=== PATIENT | male | born 1960 | race Caucasian/White ===

== ENCOUNTER → 2017-05-03 | Outpatient (CLI) | payer OTHER ==
[~2017-05-03] MED LIST: ASPI81CH PO; Amlodipine-Ben1 EACH PO; Azithromycin250 MG PO; BENAML20/5 PO; COLC.6 PO; COLCHICINE0.6 MG PO; COLCRYS0.6 MG; COLCRYS0.6 MG PO; Complete Multi1 EAC1 PO; DAILY MULTIPLE1 EACH; FLONASE ALLERG9.9 ML; Flonase 0.05% N16 GM; HYDR1TAB94 PO; LISHYD1012 PO; METR500 PO; NAPR500 PO; Naprosyn500 MG PO; Norco 5-325 Ta1 EACH PO; TAMS.4ER PO; Valium5 MG PO
== END ==
LOC: OLS 13:00
DX: R19.7 Diarrhea, unspecified (principal)
CPT/HCPCS: 87177; 87209

== ENCOUNTER → 2017-05-04 | Outpatient (CLI) | payer OTHER | END | disposition home or self-care (01) | LOC: OLS 16:20 | DX: K52.9 Noninfective gastroenteritis and colitis, unspecified (principal) | CPT/HCPCS: 84376; 87177; 87209; 87493 ==

== ENCOUNTER → 2017-05-05 | Outpatient (CLI) | payer OTHER | LOC: LAB 09:15 | DX: K52.9 Noninfective gastroenteritis and colitis, unspecified (principal) | CPT/HCPCS: 87015; 87045; 87046; 87205; 87329; 87899 ==

== ENCOUNTER 2017-06-21 04:36 | Inpatient (IN) | payer OTHER ==
[~2017-06-21] VITALS: Ht 167.6 cm; Wt 125.3 kg
[~2017-06-21 04:36] MED LIST changes: -Amlodipine-Ben1 EACH PO; +BENAML20/5; -COLCHICINE0.6 MG PO; -METR500 PO; -TAMS.4ER PO
[2017-06-21 05:16] LABS: BASOPHILS ABSOLUTE AUTO 0.04 K/mm3 (0.00-0.23); BASOPHILS PERCENT AUTO 1 % (0-2); EOSINOPHILS ABSOLUTE AUTO 0.28 K/mm3 (0.00-0.68); EOSINOPHILS PERCENT AUTO 4 % (0-6); Hematocrit 39.4 % (37.0-53.0); Hemoglobin 12.7 g/dL (13.5-17.5); IMMATURE GRAN ABSOLUTE AUTO 0.02 K/mm3 (0.00-0.10); IMMATURE GRAN PERCENT AUTO 0 % (0-1); LYMPHOCYTES ABSOLUTE AUTO 1.77 K/mm3 (0.84-5.20); LYMPHOCYTES PERCENT AUTO 25 % (21-46); MONOCYTES ABSOLUTE AUTO 0.64 K/mm3 (0.16-1.47); MONOCYTES PERCENT AUTO 9 % (4-13); Mean Corpuscular HGB 30.8 pg (26.0-34.0); Mean Corpuscular HGB Conc 32.2 g/dL (31.5-36.5); Mean Corpuscular Volume 96 fL (80-100); Mean Platelet Volume 9.7 fL (9.1-12.4); NEUTROPHILS ABSOLUTE AUTO 4.36 K/mm3 (1.96-9.15); NEUTROPHILS PERCENT AUTO 61 % (41-73); Platelet Count 144 K/mm3 (150-400); RDW Coefficient Variation 12.3 % (11.7-14.2); RDW Standard Deviation 42.8 fL (35.1-46.3); Red Blood Cell Count 4.12 M/mm3 (4.30-5.90); White Blood Cell Count 7.11 K/mm3 (4.00-11.30)
[2017-06-21 05:30] LABS: International Normalized Ratio 0.98; Prothrombin Time Results 10.2 Sec (9.7-11.5)
[2017-06-21 05:33] LABS: Alanine Aminotransfer (ALT/SGP 38 U/L (12-78); Albumin, Blood 3.3 g/dL (3.4-5.0); Albumin/Globulin Ratio 0.9 (0.8-1.8); Alk Phos 92 U/L (50-136); Anion Gap 6 mmol/L (6-16); Aspartate Aminotrans (AST/SGOT 27 U/L (12-37); Bilirubin, Total 0.4 mg/dL (0.1-1.0); Blood Urea Nitrogen 18 mg/dL (8-24); Bun/Creatinine Ratio 26.7 (12.0-20.0); CO2, Blood 27 mmol/L (21-32); Chloride, Blood 107 mmol/L (98-108); Creatinine, Blood 0.67 mg/dL (0.60-1.20); Globulin, Blood 3.8 g/dL (2.2-4.0); Glomerular Filtration Rate >60 (60-); Glucose, Blood 110 mg/dL (70-99); Potassium, Blood 4.4 mmol/L (3.5-5.5); Sodium, Blood 140 mmol/L (136-145); Total Protein, Blood 7.1 g/dL (6.4-8.2)
[2017-06-21 06:20] LABS: Campylobacter Sp Not Detected (NOT DETECT); Cryptosporidium Not Detected (NOT DETECT); Cyclospora Cayetanensis Not Detected (NOT DETECT); E. Coli O157 Not Detected (NOT DETECT); Entamoeba Histolytica Not Detected (NOT DETECT); Enteroaggregative E. coli-EAEC Not Detected (NOT DETECT); Enteropathogenic E. coli-EPEC Not Detected (NOT DETECT); Enterotoxigenic E. coli-ETEC Not Detected (NOT DETECT); Plesiomonas Shigelloides Not Detected (NOT DETECT); Salmonella Sp Not Detected (NOT DETECT); Shiga Toxin-prod E. coli-STEC Not Detected (NOT DETECT); Shigella/Enteroin E. coli-EIEC Not Detected (NOT DETECT); Vibrio Cholerae Not Detected (NOT DETECT); Vibrio Sp Not Detected (NOT DETECT); Yersinia Enterocolitica Not Detected (NOT DETECT)
[2017-06-21 06:21] LABS: Adenovirus F 40/41 Not Detected (NOT DETECT); Astrovirus Not Detected (NOT DETECT); Giardia Lamblia Not Detected (NOT DETECT); Norovirus GI/GII Not Detected (NOT DETECT); Rotavirus A Not Detected (NOT DETECT); Sapovirus Not Detected (NOT DETECT)
[2017-06-21 09:59] LABS: Hematocrit 38.2 % (37.0-53.0); Hemoglobin 12.3 g/dL (13.5-17.5)
[2017-06-21] MEDS ORDERED: TAMS.4ER PO (10:52)
[2017-06-21] MEDS ORDERED: COLCHICINE0.6 MG PO (10:54)
[2017-06-21 14:16] LABS: Hematocrit 35.7 % (37.0-53.0); Hemoglobin 11.5 g/dL (13.5-17.5)
[2017-06-21 18:10] LABS: Hematocrit 33.8 % (37.0-53.0); Hemoglobin 10.9 g/dL (13.5-17.5)
[2017-06-21 22:24] LABS: Hematocrit 32.8 % (37.0-53.0); Hemoglobin 10.5 g/dL (13.5-17.5)
[2017-06-22 05:24] LABS: BASOPHILS ABSOLUTE AUTO 0.05 K/mm3 (0.00-0.23); BASOPHILS PERCENT AUTO 1 % (0-2); EOSINOPHILS ABSOLUTE AUTO 0.19 K/mm3 (0.00-0.68); EOSINOPHILS PERCENT AUTO 3 % (0-6); Hematocrit 31.1 % (37.0-53.0); Hemoglobin 9.8 g/dL (13.5-17.5); IMMATURE GRAN ABSOLUTE AUTO 0.04 K/mm3 (0.00-0.10); IMMATURE GRAN PERCENT AUTO 1 % (0-1); LYMPHOCYTES ABSOLUTE AUTO 1.32 K/mm3 (0.84-5.20); LYMPHOCYTES PERCENT AUTO 21 % (21-46); MONOCYTES ABSOLUTE AUTO 0.62 K/mm3 (0.16-1.47); MONOCYTES PERCENT AUTO 10 % (4-13); Mean Corpuscular HGB 30.7 pg (26.0-34.0); Mean Corpuscular HGB Conc 31.5 g/dL (31.5-36.5); Mean Corpuscular Volume 98 fL (80-100); Mean Platelet Volume 10.1 fL (9.1-12.4); NEUTROPHILS ABSOLUTE AUTO 4.21 K/mm3 (1.96-9.15); NEUTROPHILS PERCENT AUTO 66 % (41-73); Platelet Count 138 K/mm3 (150-400); RDW Coefficient Variation 12.3 % (11.7-14.2); RDW Standard Deviation 44.1 fL (35.1-46.3); Red Blood Cell Count 3.19 M/mm3 (4.30-5.90); White Blood Cell Count 6.43 K/mm3 (4.00-11.30)
[2017-06-22 05:40] LABS: Anion Gap 7 mmol/L (6-16); Blood Urea Nitrogen 16 mg/dL (8-24); CO2, Blood 26 mmol/L (21-32); Chloride, Blood 108 mmol/L (98-108); Creatinine, Blood 0.76 mg/dL (0.60-1.20); Glomerular Filtration Rate >60 (60-); Glucose, Blood 107 mg/dL (70-99); Potassium, Blood 4.2 mmol/L (3.5-5.5); Sodium, Blood 141 mmol/L (136-145)
[2017-06-22] MEDS ORDERED: METR500 PO (20:00)
== END 2017-06-22 20:30 | disposition home or self-care (01) | DRG 371 ==
LOC: ER 04:36 → MEDS 08:38
PROVIDERS: Emergency Medicine; Family Medicine; Internal Medicine Gastroenterology
PROC: 0DB98ZX Excision of Duodenum, Via Natural or Artificial Opening Endoscopic, Diagnostic (ICD-10-PCS; principal; 2017-06-22 16:00)
PROC: 0D738ZZ Dilation of Lower Esophagus, Via Natural or Artificial Opening Endoscopic (ICD-10-PCS; 2017-06-22 16:00)
PROC: 0DBK8ZZ Excision of Ascending Colon, Via Natural or Artificial Opening Endoscopic (ICD-10-PCS; 2017-06-22 16:00)
DX: A04.72 Enterocolitis due to Clostridium difficile, not specified as recurrent (principal); K57.31 Diverticulosis of large intestine without perforation or abscess with bleeding; Z68.41 Body mass index [BMI] 40.0-44.9, adult; I10 Essential (primary) hypertension; E78.5 Hyperlipidemia, unspecified; G47.33 Obstructive sleep apnea (adult) (pediatric); N40.0 Benign prostatic hyperplasia without lower urinary tract symptoms; E66.9 Obesity, unspecified; M10.9 Gout, unspecified; K22.2 Esophageal obstruction; K64.8 Other hemorrhoids; K63.5 Polyp of colon
CPT/HCPCS: 36415; 74177; 80048; 80053; 82272; 85014; 85018; 85025; 85610; 85730; 86850; 86900; 86901; 87507; 88305; 88342; 93005; 93010; 96360; 96361; 99285; C9113; J1956; J1980; J2250; J7030; J7120; Q9967

== ENCOUNTER 2017-11-02 15:20 | Inpatient (IN) | payer OTHER ==
[~2017-11-02] VITALS: Ht 167.6 cm; Wt 130.5 kg
[~2017-11-02 15:20] MED LIST changes: +Amlodipine-Ben1 EACH PO; -BENAML20/5; +COLCHICINE0.6 MG PO; +METR500 PO; +TAMS.4ER PO
[2017-11-02 17:46] LABS: Alanine Aminotransfer (ALT/SGP 37 U/L (12-78); Albumin, Blood 3.5 g/dL (3.4-5.0); Albumin/Globulin Ratio 0.9 (0.8-1.8); Alk Phos 91 U/L (50-136); Anion Gap 8 mmol/L (6-16); Aspartate Aminotrans (AST/SGOT 31 U/L (12-37); Bilirubin, Total 0.4 mg/dL (0.1-1.0); Blood Urea Nitrogen 17 mg/dL (8-24); Bun/Creatinine Ratio 22.2 (12.0-20.0); CO2, Blood 24 mmol/L (21-32); Calcium, Blood 8.7 mg/dL (8.5-10.1); Chloride, Blood 106 mmol/L (98-108); Creatinine, Blood 0.77 mg/dL (0.60-1.20); Globulin, Blood 3.7 g/dL (2.2-4.0); Glomerular Filtration Rate >60 (60-); Glucose, Blood 116 mg/dL (70-99); Potassium, Blood 4.6 mmol/L (3.5-5.5); Sodium, Blood 138 mmol/L (136-145); Total Protein, Blood 7.2 g/dL (6.4-8.2)
[2017-11-02 18:55] LABS: BASOPHILS ABSOLUTE AUTO 0.06 K/mm3 (0.00-0.23); BASOPHILS PERCENT AUTO 1 % (0-2); EOSINOPHILS ABSOLUTE AUTO 0.18 K/mm3 (0.00-0.68); EOSINOPHILS PERCENT AUTO 3 % (0-6); Hematocrit 38.7 % (37.0-53.0); Hemoglobin 12.2 g/dL (13.5-17.5); IMMATURE GRAN ABSOLUTE AUTO 0.03 K/mm3 (0.00-0.10); IMMATURE GRAN PERCENT AUTO 1 % (0-1); LYMPHOCYTES ABSOLUTE AUTO 1.32 K/mm3 (0.84-5.20); LYMPHOCYTES PERCENT AUTO 20 % (21-46); MONOCYTES ABSOLUTE AUTO 0.53 K/mm3 (0.16-1.47); MONOCYTES PERCENT AUTO 8 % (4-13); Mean Corpuscular HGB 29.8 pg (26.0-34.0); Mean Corpuscular HGB Conc 31.5 g/dL (31.5-36.5); Mean Corpuscular Volume 95 fL (80-100); Mean Platelet Volume 10.3 fL (9.1-12.4); NEUTROPHILS ABSOLUTE AUTO 4.43 K/mm3 (1.96-9.15); NEUTROPHILS PERCENT AUTO 68 % (41-73); Platelet Count 127 K/mm3 (150-400); RDW Coefficient Variation 14.9 % (11.7-14.2); RDW Standard Deviation 52.2 fL (35.1-46.3); Red Blood Cell Count 4.09 M/mm3 (4.30-5.90); White Blood Cell Count 6.55 K/mm3 (4.00-11.30)
[2017-11-03 05:40] LABS: BASOPHILS ABSOLUTE AUTO 0.04 K/mm3 (0.00-0.23); BASOPHILS PERCENT AUTO 1 % (0-2); EOSINOPHILS ABSOLUTE AUTO 0.24 K/mm3 (0.00-0.68); EOSINOPHILS PERCENT AUTO 4 % (0-6); Hematocrit 38.8 % (37.0-53.0); Hemoglobin 11.8 g/dL (13.5-17.5); IMMATURE GRAN ABSOLUTE AUTO 0.02 K/mm3 (0.00-0.10); IMMATURE GRAN PERCENT AUTO 0 % (0-1); LYMPHOCYTES ABSOLUTE AUTO 1.14 K/mm3 (0.84-5.20); LYMPHOCYTES PERCENT AUTO 20 % (21-46); MONOCYTES ABSOLUTE AUTO 0.48 K/mm3 (0.16-1.47); MONOCYTES PERCENT AUTO 8 % (4-13); Mean Corpuscular HGB 29.2 pg (26.0-34.0); Mean Corpuscular HGB Conc 30.4 g/dL (31.5-36.5); Mean Corpuscular Volume 96 fL (80-100); Mean Platelet Volume 9.8 fL (9.1-12.4); NEUTROPHILS ABSOLUTE AUTO 3.82 K/mm3 (1.96-9.15); NEUTROPHILS PERCENT AUTO 67 % (41-73); Platelet Count 118 K/mm3 (150-400); RDW Coefficient Variation 14.8 % (11.7-14.2); Red Blood Cell Count 4.04 M/mm3 (4.30-5.90); White Blood Cell Count 5.74 K/mm3 (4.00-11.30)
[2017-11-03 14:20] LABS: Hematocrit 40.5 % (37.0-53.0); Hemoglobin 12.7 g/dL (13.5-17.5)
== END 2017-11-03 18:14 | disposition home or self-care (01) | DRG 378 ==
LOC: ER 15:20 → MEDS 19:52
PROVIDERS: Emergency Medicine; Family Medicine; Hospitalist
DX: K57.91 Diverticulosis of intestine, part unspecified, without perforation or abscess with bleeding (principal); Z68.42 Body mass index [BMI] 45.0-49.9, adult; I10 Essential (primary) hypertension; N40.0 Benign prostatic hyperplasia without lower urinary tract symptoms; E78.5 Hyperlipidemia, unspecified; D69.6 Thrombocytopenia, unspecified; E66.01 Morbid (severe) obesity due to excess calories; R73.9 Hyperglycemia, unspecified; K52.9 Noninfective gastroenteritis and colitis, unspecified; G47.33 Obstructive sleep apnea (adult) (pediatric); J30.9 Allergic rhinitis, unspecified; Z86.19 Personal history of other infectious and parasitic diseases
CPT/HCPCS: 36415; 80053; 85014; 85018; 85025; 86850; 86900; 86901; 87493

== ENCOUNTER 2019-02-28 07:06 | Emergency (ER) | payer SELFPAY ==
[~2019-02-28] VITALS: Ht 167.6 cm; Wt 127.0 kg
[~2019-02-28 07:06] MED LIST changes: +ALBU90OI6 INH; +Prednisone20 MG PO; +Zithromax250 MG PO
[2019-02-28] MEDS ORDERED: Indomethacin50 MG PO (08:50)
[2019-02-28] MEDS ORDERED: Norco 5-325 Ta1 EACH PO (08:51)
== END 2019-02-28 09:28 | disposition home or self-care (01) ==
LOC: ER 07:06
DX: M10.9 Gout, unspecified (principal); I10 Essential (primary) hypertension; Z79.899 Other long term (current) drug therapy
CPT/HCPCS: 99283

== ENCOUNTER 2019-08-12 01:55 | Emergency (ER) | payer OTHER ==
[~2019-08-12] VITALS: Ht 167.6 cm; Wt 131.5 kg
[~2019-08-12 01:55] MED LIST changes: +Indomethacin50 MG PO
[2019-08-12] MEDS ORDERED: Norco 5-325 Ta1 EACH PO (02:23)
[2019-08-12] MEDS ORDERED: IBUP800 PO (02:23)
== END 2019-08-12 02:27 | disposition home or self-care (01) ==
LOC: ER 01:55
DX: M70.32 Other bursitis of elbow, left elbow (principal); I10 Essential (primary) hypertension; E78.5 Hyperlipidemia, unspecified; R73.9 Hyperglycemia, unspecified; M10.9 Gout, unspecified; Z79.899 Other long term (current) drug therapy
CPT/HCPCS: 99283; A9270-GY

== ENCOUNTER 2021-01-22 21:00 | Observation (INO) | payer OTHER ==
[~2021-01-22] VITALS: Ht 177.8 cm; Wt 139.9 kg
[~2021-01-22 21:00] MED LIST changes: +IBUP800 PO
[2021-01-22] MEDS ORDERED: TAMSULOSIN HCL0.4 M1 (21:43)
[2021-01-22] MEDS ORDERED: FLUTICASONE-SA1 EAC9 (21:44)
[2021-01-22] MEDS ORDERED: DUTASTERIDE0.5 M3 PO (21:46)
[2021-01-22 21:47] LABS: BASOPHILS ABSOLUTE AUTO 0.06 K/mm3 (0.00-0.23); BASOPHILS PERCENT AUTO 1 % (0-2); EOSINOPHILS ABSOLUTE AUTO 0.18 K/mm3 (0.00-0.68); EOSINOPHILS PERCENT AUTO 2 % (0-6); Hematocrit 45.8 % (37.0-53.0); Hemoglobin 14.6 g/dL (13.5-17.5); IMMATURE GRAN ABSOLUTE AUTO 0.03 K/mm3 (0.00-0.10); IMMATURE GRAN PERCENT AUTO 0 % (0-1); LYMPHOCYTES ABSOLUTE AUTO 1.57 K/mm3 (0.84-5.20); LYMPHOCYTES PERCENT AUTO 18 % (21-46); MONOCYTES ABSOLUTE AUTO 0.78 K/mm3 (0.16-1.47); MONOCYTES PERCENT AUTO 9 % (4-13); Mean Corpuscular HGB 30.7 pg (26.0-34.0); Mean Corpuscular HGB Conc 31.9 g/dL (31.5-36.5); Mean Corpuscular Volume 96 fL (80-100); Mean Platelet Volume 9.8 fL (9.1-12.4); NEUTROPHILS ABSOLUTE AUTO 6.02 K/mm3 (1.96-9.15); NEUTROPHILS PERCENT AUTO 70 % (41-73); Platelet Count 171 K/mm3 (150-400); RDW Standard Deviation 46.3 fL (35.1-46.3); Red Blood Cell Count 4.76 M/mm3 (4.30-5.90); White Blood Cell Count 8.64 K/mm3 (4.00-11.30)
[2021-01-22] MEDS ORDERED: ATOR10 PO (21:47)
[2021-01-22] MEDS ORDERED: Nitroglycerin1 EAC3 TD (21:49)
[2021-01-22 22:05] LABS: Alanine Aminotransfer (ALT/SGP 42 U/L (12-78); Albumin, Blood 3.6 g/dL (3.4-5.0); Albumin/Globulin Ratio 0.9 (0.8-1.8); Alk Phos 103 U/L (50-136); Anion Gap 7 mmol/L (6-16); Aspartate Aminotrans (AST/SGOT 41 U/L (12-37); Bilirubin, Total 0.5 mg/dL (0.1-1.0); Blood Urea Nitrogen 14 mg/dL (8-24); Bun/Creatinine Ratio 17.9 (12.0-20.0); CO2, Blood 28 mmol/L (21-32); Calcium, Blood 9.5 mg/dL (8.5-10.1); Chloride, Blood 103 mmol/L (98-108); Creatinine, Blood 0.78 mg/dL (0.60-1.20); Globulin, Blood 4.1 g/dL (2.2-4.0); Glomerular Filtration Rate >60 (60-); Glucose, Blood 108 mg/dL (70-99); Potassium, Blood 4.1 mmol/L (3.5-5.5); Sodium, Blood 138 mmol/L (136-145); Total Protein, Blood 7.7 g/dL (6.4-8.2); Troponin I 0.035 ng/mL (0.000-0.040)
[2021-01-23 04:57] LABS: Alanine Aminotransfer (ALT/SGP 37 U/L (12-78); Albumin, Blood 3.2 g/dL (3.4-5.0); Albumin/Globulin Ratio 0.9 (0.8-1.8); Alk Phos 88 U/L (50-136); Anion Gap 8 mmol/L (6-16); Aspartate Aminotrans (AST/SGOT 31 U/L (12-37); Bilirubin, Total 0.5 mg/dL (0.1-1.0); Blood Urea Nitrogen 15 mg/dL (8-24); Bun/Creatinine Ratio 19.4 (12.0-20.0); CO2, Blood 27 mmol/L (21-32); Calcium, Blood 8.9 mg/dL (8.5-10.1); Chloride, Blood 105 mmol/L (98-108); Creatinine, Blood 0.77 mg/dL (0.60-1.20); Globulin, Blood 3.7 g/dL (2.2-4.0); Glomerular Filtration Rate >60 (60-); Glucose, Blood 110 mg/dL (70-99); Potassium, Blood 3.8 mmol/L (3.5-5.5); Sodium, Blood 140 mmol/L (136-145); Total Protein, Blood 6.9 g/dL (6.4-8.2)
[2021-01-23 05:25] LABS: Anti-Xa UFH, PHA Monitoring <0.10 IU/mL; International Normalized Ratio 1.04; Prothrombin Time Results 10.9 Sec (9.7-11.5)
--- NOTE | 2021-01-23 05:37 | NUR ---
Arrival to unit from ED denies SOB and CP Able to stand and pivot from stretcher to bed refusing to use urinal for urine output, states he will "hold it"
--- NOTE | 2021-01-23 07:36 | NUR ---
cardiology consult called to Dr. Husain, updated on pt condition at this time.
--- NOTE | 2021-01-23 07:37 | NUR ---
ASSUMED CARE OF PT THIS AM PT. ALERT AND ORIENTED THIS AM. ABLE TO REPOSITION SELF IN BED FOR COMFORT. PT. DENIES CHEST PAIN/PRESSURE THIS AM. PT. REPORTS PAIN USUALLY STARTS WITH EXCERTION. PT. SEES CARIDIOLOGY ( ANA BANERJEE NP) OUT PATIENT. PT. CURRENTLY ON RA, HEPEARIN GTT INFUSING AT THIS TIME. PT WAS HYPERTENSIVE THIS AM, HYDRALAZINE 10MG GIVEN THIS AM. BED IN LOW POSITION, CALL LIGHT IN REACH.
[2021-01-23 08:24] LABS: BASOPHILS ABSOLUTE AUTO 0.06 K/mm3 (0.00-0.23); BASOPHILS PERCENT AUTO 1 % (0-2); EOSINOPHILS ABSOLUTE AUTO 0.28 K/mm3 (0.00-0.68); EOSINOPHILS PERCENT AUTO 4 % (0-6); Hematocrit 43.2 % (37.0-53.0); Hemoglobin 13.3 g/dL (13.5-17.5); IMMATURE GRAN ABSOLUTE AUTO 0.02 K/mm3 (0.00-0.10); IMMATURE GRAN PERCENT AUTO 0 % (0-1); LYMPHOCYTES ABSOLUTE AUTO 1.64 K/mm3 (0.84-5.20); LYMPHOCYTES PERCENT AUTO 21 % (21-46); MONOCYTES ABSOLUTE AUTO 0.76 K/mm3 (0.16-1.47); MONOCYTES PERCENT AUTO 10 % (4-13); Mean Corpuscular HGB 30.2 pg (26.0-34.0); Mean Corpuscular HGB Conc 30.8 g/dL (31.5-36.5); Mean Corpuscular Volume 98 fL (80-100); Mean Platelet Volume 9.9 fL (9.1-12.4); NEUTROPHILS ABSOLUTE AUTO 4.97 K/mm3 (1.96-9.15); NEUTROPHILS PERCENT AUTO 64 % (41-73); Platelet Count 146 K/mm3 (150-400); RDW Coefficient Variation 13.2 % (11.7-14.2); RDW Standard Deviation 47.6 fL (35.1-46.3); Red Blood Cell Count 4.41 M/mm3 (4.30-5.90); White Blood Cell Count 7.73 K/mm3 (4.00-11.30)
[2021-01-23 08:49] LABS: Source, Urine Clean Catch
[2021-01-23 09:01] LABS: Troponin I 0.018 ng/mL (0.000-0.040)
[2021-01-23 09:05] LABS: Appearance, Urine Clear (Clear); Bilirubin, Urine Neg (Neg); Blood, Urine Neg (Neg); Color, Urine Yellow (P-Yellow); Glucose Qualitative, Urine Neg (Neg); Ketones, Urine Neg (Neg); Leukocyte Esterase, Urine Neg (Neg); Nitrite, Urine Neg (Neg); Protein, Urine Neg (Neg); Specific Gravity, Urine 1.025 (1.003-1.022); Urobilinogen, Urine NORM (Normal)
--- NOTE | 2021-01-23 13:44 | NUR ---
DR. CRAFT IN TO CONSENT PT FOR HEART CATH. PT. FAMILY CALLED PER PT REQUEST TO UPDATE ON PLAN OF CARE.
[2021-01-23] MEDS ORDERED: LORA10ER PO (13:52)
[2021-01-23] MEDS ORDERED: METO25 PO (13:52)
--- NOTE | 2021-01-23 13:53 | NUR ---
PT MED LIST UPDATED PER PT PRESCRIPTIONS.
--- NOTE | 2021-01-23 14:12 | NUR ---
PT. TO I&C TECH AT THIS TIME. TELE NOTIFIED. PT REMAINS HYPERTENSIVE I&C TECH STAFF NOTIFIED OF THIS.
[2021-01-23 14:50] LABS: Influenza A, PCR NEGATIVE (NEGATIVE); Influenza B, PCR NEGATIVE (NEGATIVE); Resp Syncytial Virus, PCR NEGATIVE (NEGATIVE); SARS-Cov-2 (COVID-19) PCR, MMC NEGATIVE (NEGATIVE)
--- NOTE | 2021-01-23 14:58 | NUR ---
REPORT TO LYN BELTRAN
--- NOTE | 2021-01-23 17:53 | NUR ---
PATIENT ARRIVED FROM CVL VIA BED AROUND 1600. WITH AND CVL STAFF. HE HAD A RIGHT WRIST APPROACH WITH TR BAND IN PLACE, BALLOON FILLED WITH 18 ML OF AIR. SITE LOOKS GOOD, GOOD CAP REFILL ON RIGHT HAND FINGERS. SPO2 MONITOR ON THE RIGHT HAND. LUNGS ARE CLEAR. ON 2 LITERS NC DOWN TO RA. SPO2 97%. BP 120-210'S/50-164. DR CRAFT ADDED ANOTHER BP MEDICATION. 12 LEAD EKG DONE POST CVL, IT LOOKS GOOD. PATIENT IS DROWSY BUT ARROUSABLE. HE ATE DINNER, 100% WITH HELP FROM . HE WAS ABLE TO VOID WHILE IN BED WITH A URINAL WITH HELP FROM STAFF. HIS TR BAND IS BEING LET DOWN 1 ML EVERY 15 MINUTES. SITE IS BEING ASSESSED EACH TIME WITH DECREASE IN BALLOON. OVERAL, HE IS LOOKING GOOD. WILL LEAVE AT 1800.
--- NOTE | 2021-01-23 19:01 | NUR ---
1ML OF AIR RELEASED FROM TR BAND WITH DAYSHIFT RN DURING BEDSIDE REPORT - PER REPORT 9ML OF AIR REMAINING
[2021-01-23 20:57] LABS: Troponin I 0.07 ng/mL (0.000-0.040)
--- NOTE | 2021-01-23 23:00 | NUR ---
Dr. Loyd called for CPAP order. Patient with sleep apnea with desaturation down to 76%. Patient states he is supposed to wear CPAP at home for GIANNI, but feels like he is "suffocating" when he attempted to wear one at home and is now noncomplaint. Patient educated on severity of apnea observed by keno writer. Patient apnic for 5-10 seconds at a time, and then would gasp for air 2 or 3 breaths and go back to apnic with desaturations down to 76% even on 6LNC. Patient states he will try to wear a CPAP tonight.
--- NOTE | 2021-01-23 23:00 | NUR ---
1930 - 2ML REMOVED - 7ML REMAINING IN TR BAND 1945 - 2ML REMOVED - 5ML REMAINING IN TR BAND 2000 - 1ML REMOVED - 4ML REMAINING IN TR BAND 2045 - 2ML REMOVED - 2ML REMIANING IN TR BAND 2100 - 2ML REMOVED - 0ML REMAINING IN TR BAND 2200 - TR BAND REMOVED, OCCLUSIVE DRESSING WITH CHG/TEGADERM APPLIED 2300 - 1HR S/P TR BAND REMOVAL - DRESSING REMAINS C/D/I AND SITE REMAINS NONTENDER, SOFT, NO BRUISING/HEMATOMA, NO BLEEDING, CLEAN SITE.
--- NOTE | 2021-01-24 05:49 | NUR ---
End of shift summary: Morning EKG taken: NSR with T wave abnormality, "consider lateral ischemia" No morning labs ordered. PRN hydralazine given x1 approx 1-2 hours after new HTN meds orders given. Patient tolerating TR band off without complication. Able to ambulate in room with SBA to toilet. BM x2 overnight. Loose-liquid. Urination WNL. Tolerated CPAP - improved saturations, HR, and blood pressure with CPAP on.
[2021-01-24 07:49] LABS: Hematocrit 40.3 % (37.0-53.0); Hemoglobin 12.6 g/dL (13.5-17.5); Mean Corpuscular HGB Conc 31.3 g/dL (31.5-36.5); Mean Corpuscular Volume 99 fL (80-100); Mean Platelet Volume 9.9 fL (9.1-12.4); Platelet Count 141 K/mm3 (150-400); RDW Coefficient Variation 13.1 % (11.7-14.2); RDW Standard Deviation 47.5 fL (35.1-46.3); Red Blood Cell Count 4.07 M/mm3 (4.30-5.90)
[2021-01-24 08:16] LABS: Alanine Aminotransfer (ALT/SGP 36 U/L (12-78); Albumin, Blood 2.8 g/dL (3.4-5.0); Albumin/Globulin Ratio 0.8 (0.8-1.8); Alk Phos 84 U/L (50-136); Anion Gap 7 mmol/L (6-16); Aspartate Aminotrans (AST/SGOT 46 U/L (12-37); Bilirubin, Total 0.7 mg/dL (0.1-1.0); Blood Urea Nitrogen 22 mg/dL (8-24); Bun/Creatinine Ratio 25.3 (12.0-20.0); CHOL/HDL RATIO 2.7; CO2, Blood 26 mmol/L (21-32); Calcium, Blood 8.7 mg/dL (8.5-10.1); Chloride, Blood 106 mmol/L (98-108); Cholesterol 122 mg/dL (50-200); Creatinine, Blood 0.87 mg/dL (0.60-1.20); Globulin, Blood 3.6 g/dL (2.2-4.0); Glomerular Filtration Rate >60 (60-); Glucose, Blood 114 mg/dL (70-99); HDL Cholesterol 46 mg/dL (>39); LDL/HDL RATIO 0.5; Low Density Lipoprotein Chol 24 mg/dL (0-110); Magnesium, Blood 1.9 mg/dL (1.6-2.4); Sodium, Blood 139 mmol/L (136-145); Total Protein, Blood 6.4 g/dL (6.4-8.2); Triglycerides 261 mg/dL (30-160); Very Low Density Lipoprot Chol 52 mg/dL (6-32)
--- NOTE | 2021-01-24 08:52 | NUR ---
ASSUMED CARE BEDSIDE REPORT FROM JOHNSON BELTRAN AT 0700. PT A&OX 3. ANSWERS QUESTIONS APPROPRIATELY. FOLLOWS COMMANDS. DENIES CHEST PAIN OR PRESSURE. EAGER FOR D/C. CPAP REMOVED AND PLACED ON 2.5L VIA NC. LUNGS DIM IN BASES. NONPRODUCTIVE COUGH. SR ON MONITOR. BP STABLE. RIGHT RADIAL SITE WNL, DRESSING C/D/I. ARM BOARD IN PLACE. PT ABLE TO REPOSITION SELF IN BED, MAKE NEEDS KNOWN. WILL CONTINUE TO MONITOR.
[2021-01-24] MEDS ORDERED: NITR.4SL SL (10:47)
[2021-01-24] MEDS ORDERED: DUTA.5 PO (10:48)
[2021-01-24] MEDS ORDERED: CLOP75 PO (10:48)
[2021-01-24] MEDS ORDERED: ASPI81CH PO (10:48)
[2021-01-24] MEDS ORDERED: HYDCHL25 PO (10:49)
--- NOTE | 2021-01-24 11:30 | NUR ---
DR CRAFT AND DR BLACKMAN ROUNDED. D/C ORDERS OBTAINED. REVIEWED INSTRUCTIONS c PT. VERBALIZED UNDERSTANDING. MEDS FAXED TO [facility]. IV REMOVED. ALL BELONGINGS HOME c PT. OTD NAD.
== END 2021-01-24 11:59 | disposition home or self-care (01) ==
LOC: ER 21:00 → ERHOLD 01-23 01:34 → ICUE 01-23 01:34 → EDBEDREQ 01-23 02:56 → EDBEDREQSVC 01-23 02:56 → ICUE 01-23 05:41
PROVIDERS: Internal Medicine; Internal Medicine Cardiovascular Disease; Physician Assistant; ADMIT Internal Medicine
DX: I21.4 Non-ST elevation (NSTEMI) myocardial infarction (principal); I10 Essential (primary) hypertension; E78.5 Hyperlipidemia, unspecified; E11.9 Type 2 diabetes mellitus without complications; G47.33 Obstructive sleep apnea (adult) (pediatric); E66.9 Obesity, unspecified; Z68.41 Body mass index [BMI] 40.0-44.9, adult; I35.0 Nonrheumatic aortic (valve) stenosis; Z20.822 Contact with and (suspected) exposure to COVID-19
CPT/HCPCS: 0241U; 36415; 71045; 76937; 80053; 80061; 81003; 82550; 83690; 83735; 83880; 84443; 84484; 85025; 85027; 85347; 85520; 85610; 93005; 93010; 93306; 93454; 94640; 94660; 94664; 96374; 96376; 99152; 99153; 99285-25; A9270; C1769; C1874; C1887; C1894; C9600; G0378; J0360; J1644; J2250; J3010; J7030; J7050; Q9967

== ENCOUNTER 2021-06-08 09:25 | Day surgery (SDC) | payer OTHER ==
[~2021-06-08 09:25] MED LIST changes: +ATOR10 PO; +CLOP75 PO; +DUTA.5 PO; +DUTASTERIDE0.5 M3 PO; +FAMO20 PO; +FLUTICASONE-SA1 EAC9; +HYDCHL25 PO; +LORA10ER PO; +METO25 PO; +NITR.4SL SL; +Nitroglycerin1 EAC3 TD; +TAMSULOSIN HCL0.4 M1
--- NOTE | 2021-06-08 10:00 | NUR ---
PATIENT HERE FOR CT ANGIOGRAM. PRE-OP IN DAY SURGERY. A&O x4. TOOK AM MEDS THIS AM WITH SIP OF WATER. DENIES NO CHEST PAIN AT THIS TIME.
--- NOTE | 2021-06-08 10:12 | NUR ---
METOPROLOL 5MG IVP GIVEN PER ORDERS TO CONTROL HR <62 AND BP <120. CONTINUE TO MONITOR AND TX PER ORDERS.
--- NOTE | 2021-06-08 10:23 | NUR ---
SECOND DOSE METOPROLOL 5MG IVP GIVEN FOR HR/BP CONTROL.
--- NOTE | 2021-06-08 10:38 | NUR ---
TRANSFER PATIENT VIA GURNEY TO RADIOLOGY FOR CT ANGIOGRAM.
--- NOTE | 2021-06-08 11:23 | NUR ---
Patient up to Ambulate independently. Gait steady. Discharge instructions reviewed with patient. Patient verbalizes understanding. Copy given to patient to take home. Discharge to home via ambulation.
== END 2021-06-08 23:08 | disposition home or self-care (01) ==
LOC: CT 09:25 → ORD 09:30 → ORSCMMR 09:30 → CT 10:00
DX: Z01.810 Encounter for preprocedural cardiovascular examination (principal); I25.10 Atherosclerotic heart disease of native coronary artery without angina pectoris; E78.5 Hyperlipidemia, unspecified; I10 Essential (primary) hypertension; E66.01 Morbid (severe) obesity due to excess calories; Z68.43 Body mass index [BMI] 50.0-59.9, adult; Z95.5 Presence of coronary angioplasty implant and graft
CPT/HCPCS: 75574; Q9967

== ENCOUNTER 2021-09-21 07:55 | Emergency (ER) | payer OTHER ==
[~2021-09-21] VITALS: Ht 167.6 cm; Wt 136.1 kg
[2021-09-21] MEDS ORDERED: ONDA4ODT MM (08:37)
[2021-09-21] MEDS ORDERED: CYCL10 PO (08:37)
[2021-09-21] MEDS ORDERED: PRED20 PO (08:37)
[2021-09-21] MEDS ORDERED: HYDR1TAB94 PO (08:37)
[2021-09-21] MEDS ORDERED: DOCU100 PO (08:37)
== END 2021-09-21 09:30 | disposition home or self-care (01) ==
LOC: ER 07:55
DX: M25.551 Pain in right hip (principal); M87.9 Osteonecrosis, unspecified; I10 Essential (primary) hypertension; E66.01 Morbid (severe) obesity due to excess calories; Z68.42 Body mass index [BMI] 45.0-49.9, adult; Z86.16 Personal history of COVID-19; Z79.899 Other long term (current) drug therapy; Z79.82 Long term (current) use of aspirin; Z79.02 Long term (current) use of antithrombotics/antiplatelets; Z95.5 Presence of coronary angioplasty implant and graft
CPT/HCPCS: A9270; J1885

== ENCOUNTER 2022-07-13 05:57 | Day surgery (SDC) | payer OTHER ==
[~2022-07-13] VITALS: Ht 167.6 cm; Wt 108.8 kg
[2022-07-13] VITALS (22 sets, daily range): BP systolic 110–141; BP diastolic 45–63
[~2022-07-13 05:57] MED LIST changes: +Apple Cider Vi300 MG PO; +BREZTRI AEROS10.7 GM INH; +CYCL10 PO; +DOCU100 PO; +INDO50S PO; +NITRO-DUR1 EAC1 TOP; +OLME20 PO; +ONDA4ODT MM; +PRED20 PO; +ZINC SULFATE50 MG PO
[2022-07-13] MEDS ORDERED: Aspirin325 MG PO (07:10)
--- NOTE | 2022-07-13 07:30 | NUR ---
History, Chart, Medications and Allergies reviewed before start of procedure.PRE OP TEACHING DONE. PT REPORTS HAVING A FLARE UP OF GOUT IN BOTH ANKLES. WITH PAIN OF4/10, NO SWELLING OR RDDNESS NOTED. INFORMED DR NATH OF THIS. AT BEDSIDE.
[2022-07-13] MEDS ORDERED: LORA10ER PO (15:39)
[2022-07-13] MEDS ORDERED: AMLO5 PO (15:39)
--- NOTE | 2022-07-13 16:50 | NUR ---
SHIFT SUMMARY NEW ADMIT TO UNIT POD [address] NATH. ALERT, ORIENTED, COOPERATIVE. SPINAL WORE OFF WELL, STILL REPORTS MILD NUMBNESS TO RIGHT KNEE. SBA TO AMBULATE IN HALLS WITH PHYSICAL THERAPY AND FWW AND GB. UP TO RECLINER. TOLERATING REGULAR DIET AND LIQUIDS. NO VOID AT THIS TIME, WILL MONITOR WITH BS. IV FLUID RUNNING. RIGHT KNEE WITH AQUACELS AND JARED WRAP C/D/I. POLAR PACK IN PLACE. SPOUSE PRESENT DURING AFTERNOON. PHARMACY CALLED THIS RN WITH CONCERNS ABOUT PATIENT'S HOME BP MEDS. CALL OUT TO JONA CURRY AND DR NATH TO OBTAIN ORDER FOR HOSP CONSULT TO MANAGE HOME BP MEDS WITH PHARMACY. WILL REPORT TO OPERATING ROOM SPECIALIST RN.
--- NOTE | 2022-07-13 19:38 | NUR ---
HOME BP MEDS PHARMACY CALLED THIS RN TO INFORM THAT PATIENT'S HOME BP MEDS ARE UNSAFE AND HAVE BEEN ORDERED BY TWO OR MORE PROVIDERS IN THE COMMUNITY. OBTAINED ORDER FOR HOSP CONSULT FROM DR NATH. SPOKE WITH DR CHRISTIAN. HE STATED EITHER HE OR DR GARCIA WILL COME SEE PATIENT AND REVIEW HOME MEDS AND MAKE A RECOMMENDATION.
--- NOTE | 2022-07-14 04:14 | NUR ---
SHIFT SUMMARY POD1 RIGHT TKA, DRESSING REMAINS C/D/I. SENSATION AND CIRCULATION REMAIN INTACT IN RLE. VSS, CONTINUOUS PULSE OX ALARMED WHEN PT'S HR DROPPED INTO THE 40'S WHILE THE PT WAS SLEEPING. THIS HR DID NOT SUSTAIN AND WOULD RETURN TO THE HIGH 50'S QUICKLY. PT REMAINS ASYMPTOMATIC. PT HAS AMBULATED TO THE BATHROOM MULTIPLE TIMES TO VOID W/O DIFFICULTY. PT MEDICATED FOR PAIN WITH SCHEDULED AND ONCE WITH OXY. CRYO REMAINS IN PLACE. PT REPORTS MINIMAL TO NO PAIN. PT TOLLERATING PO INTAKE W/O N/V. NO ACUTE EVENTS T/O THE NIGHT. PLAN FOR PT TO D/C HOME TODAY. THE PATIENT IS CURRENTLY RESTING, IN NO DISTRESS, CALL LIGHT IN REACH
[2022-07-14 04:17] VITALS: BP 119/63
[2022-07-14 07:02] LABS: BASOPHILS ABSOLUTE AUTO 0.06 K/mm3 (0.00-0.23); BASOPHILS PERCENT AUTO 1 % (0-2); EOSINOPHILS ABSOLUTE AUTO 0.47 K/mm3 (0.00-0.68); EOSINOPHILS PERCENT AUTO 4 % (0-6); Hematocrit 28.4 % (37.0-53.0); Hemoglobin 9.1 g/dL (13.5-17.5); IMMATURE GRAN ABSOLUTE AUTO 0.03 K/mm3 (0.00-0.10); IMMATURE GRAN PERCENT AUTO 0 % (0-1); LYMPHOCYTES ABSOLUTE AUTO 1.48 K/mm3 (0.84-5.20); LYMPHOCYTES PERCENT AUTO 14 % (21-46); MONOCYTES ABSOLUTE AUTO 0.89 K/mm3 (0.16-1.47); MONOCYTES PERCENT AUTO 8 % (4-13); Mean Corpuscular Volume 90 fL (80-100); Mean Platelet Volume 10.6 fL (9.1-12.4); NEUTROPHILS ABSOLUTE AUTO 7.82 K/mm3 (1.96-9.15); NEUTROPHILS PERCENT AUTO 73 % (41-73); Platelet Count 167 K/mm3 (150-400); RDW Coefficient Variation 13.4 % (11.7-14.2); Red Blood Cell Count 3.14 M/mm3 (4.30-5.90); White Blood Cell Count 10.75 K/mm3 (4.00-11.30)
[2022-07-14 07:14] VITALS: BP 105/61
[2022-07-14 07:19] LABS: Bun/Creatinine Ratio 28.3 (12.0-20.0); Calcium, Blood 8.7 mg/dL (8.5-10.1); Creatinine, Blood 0.78 mg/dL (0.60-1.20); Potassium, Blood 4.2 mmol/L (3.5-5.5)
[2022-07-14] MEDS ORDERED: Percocet 5-3251 EACH PO (09:31)
--- NOTE | 2022-07-14 10:05 | NUR ---
DISCHARGE NOTE: PATIENT AND PATIENTS WERE EDUCATED ON DISCHARGE INSTRUCTIONS. BOTH VERBALIZED UNDERSTANDING OF INSTRUCTIONS AND HAVE NO FURTHER QUESTIONS AT THIS TIME. HARD PERSCRIPTION WAS GIVEN TO . IV WAS TAKEN OUT AND WNL. PAIN IS MANAGED WITH ORAL PAIN MEDICATIONS. PATIENTS RIGHT KNEE HAS AN AQUACEL AND JARED WRAP THAT ARE C/D/I. DENIES NUMBNESS OR TINGLING. PATIENT IS TOLERATING PO INTAKE AND IS VOIDING. HE IS A SBA WITH FWW AND GAIT BELT. HE IS DRESSED AND HAS PERSONAL ITEMS IN THE ROOM GATHERED. HE WILL BE WHEELCHAIRED OUT TO THE CAR ONCE HIS RIDE ARRIVES.
--- NOTE | 2022-07-14 10:38 | NUR ---
PATIENT IS BEING WHEELCHAIRED OUT TO HIS RIDE TO BE TAKEN HOME.
== END 2022-07-14 10:39 | disposition home or self-care (01) ==
LOC: ORSCMMR 05:57 → SURS 05:57 → ORSCMMR 07:30 → ORD 08:15 → ORSCMMR 08:15 → ORD 10:00 → ORSCMMR 10:00 → SURS 12:29 → ORSCMMR 12:29 → SURS 07-14 10:39
PROVIDERS: Orthopaedic Surgery
PROC: 0SRC0JA Replacement of Right Knee Joint with Synthetic Substitute, Uncemented, Open Approach (ICD-10-PCS; principal; 2022-07-13 07:30)
DX: M17.11 Unilateral primary osteoarthritis, right knee (principal); I10 Essential (primary) hypertension; I25.2 Old myocardial infarction; G47.33 Obstructive sleep apnea (adult) (pediatric); I25.10 Atherosclerotic heart disease of native coronary artery without angina pectoris; Z79.899 Other long term (current) drug therapy; Z79.82 Long term (current) use of aspirin; E66.9 Obesity, unspecified; Z68.39 Body mass index [BMI] 39.0-39.9, adult; Z79.02 Long term (current) use of antithrombotics/antiplatelets
CPT/HCPCS: 36415; 73560-RT; 80048; 85025; 94660; 94762; 97110; 97116; 97162; A9270; C1713; C1776; J0171; J0690; J0735; J1885; J2250; J2370; J2405; J2704; J2765; J2795; J3010; J7120

== ENCOUNTER 2022-07-24 19:32 | Emergency (ER) | payer OTHER ==
[~2022-07-24] VITALS: Ht 167.6 cm; Wt 110.7 kg
[~2022-07-24 19:32] MED LIST changes: +AMLO5 PO; +Aspirin325 MG PO; +Percocet 5-3251 EACH PO
[2022-07-24 19:36] VITALS: BP 140/61
[2022-07-24] MEDS ORDERED: INDO50 PO (20:24)
[2022-07-24] MEDS ORDERED: OLMESARTAN MEDO40 MG PO (20:26)
[2022-07-24] MEDS ORDERED: Phentermine HCl30 MG (20:26)
== END 2022-07-24 21:55 | disposition home or self-care (01) ==
LOC: ER 19:32
DX: S80.01XA Contusion of right knee, initial encounter (principal); Z48.01 Encounter for change or removal of surgical wound dressing; I10 Essential (primary) hypertension; E78.00 Pure hypercholesterolemia, unspecified; Z79.02 Long term (current) use of antithrombotics/antiplatelets; Z79.899 Other long term (current) drug therapy; X58.XXXA Exposure to other specified factors, initial encounter
CPT/HCPCS: 99282

== ENCOUNTER 2022-10-16 22:03 | Emergency (ER) | payer OTHER ==
[~2022-10-16] VITALS: Ht 167.6 cm; Wt 107.5 kg
[~2022-10-16 22:03] MED LIST changes: +INDO50 PO; +OLMESARTAN MEDO40 MG PO; +Phentermine HCl30 MG
[2022-10-16 22:07] VITALS: BP 151/79
[2022-10-16] MEDS ORDERED: CEPH500 PO (23:51)
== END 2022-10-17 | disposition home or self-care (01) ==
LOC: ER 22:03
DX: T81.49XA Infection following a procedure, other surgical site, initial encounter (principal); L03.115 Cellulitis of right lower limb; F41.0 Panic disorder [episodic paroxysmal anxiety]; Z98.890 Other specified postprocedural states; Z96.651 Presence of right artificial knee joint; Z79.899 Other long term (current) drug therapy; I10 Essential (primary) hypertension; E78.00 Pure hypercholesterolemia, unspecified; M10.9 Gout, unspecified; I25.2 Old myocardial infarction
CPT/HCPCS: 99283; A9270

== ENCOUNTER 2023-01-11 09:16 | Day surgery (SDC) | payer OTHER ==
[2023-01-11] VITALS (15 sets, daily range): BP systolic 121–172; BP diastolic 69–91
[~2023-01-11] VITALS: Ht 165 cm; Wt 112.8 kg
[~2023-01-11 09:16] MED LIST changes: +ACET500; +ATORVASTATIN CA80 M1 PO; +CEPH500 PO; +Children's Clari5 MG PO; +GABA300 PO; +IBUP800; +NITROGLYCERINE TOP; +TRAM50
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
[2023-01-12 03:47] VITALS: BP 126/67
[2023-01-12 05:30] LABS: BASOPHILS ABSOLUTE AUTO 0.07 K/mm3 (0.00-0.23); BASOPHILS PERCENT AUTO 1 % (0-2); EOSINOPHILS ABSOLUTE AUTO 0.21 K/mm3 (0.00-0.68); EOSINOPHILS PERCENT AUTO 2 % (0-6); Hematocrit 27.2 % (37.0-53.0); Hemoglobin 8.3 g/dL (13.5-17.5); IMMATURE GRAN ABSOLUTE AUTO 0.03 K/mm3 (0.00-0.10); IMMATURE GRAN PERCENT AUTO 0 % (0-1); LYMPHOCYTES ABSOLUTE AUTO 0.99 K/mm3 (0.84-5.20); LYMPHOCYTES PERCENT AUTO 9 % (21-46); MONOCYTES ABSOLUTE AUTO 1.18 K/mm3 (0.16-1.47); MONOCYTES PERCENT AUTO 11 % (4-13); Mean Corpuscular HGB 25.9 pg (26.0-34.0); Mean Corpuscular HGB Conc 30.5 g/dL (31.5-36.5); Mean Corpuscular Volume 85 fL (80-100); Mean Platelet Volume 9.9 fL (9.1-12.4); NEUTROPHILS ABSOLUTE AUTO 8.23 K/mm3 (1.96-9.15); NEUTROPHILS PERCENT AUTO 77 % (41-73); Platelet Count 178 K/mm3 (150-400); RDW Coefficient Variation 16.7 % (11.7-14.2); RDW Standard Deviation 51.9 fL (35.1-46.3); Red Blood Cell Count 3.21 M/mm3 (4.30-5.90); White Blood Cell Count 10.71 K/mm3 (4.00-11.30)
[2023-01-12 05:52] LABS: Bun/Creatinine Ratio 24.9 (12.0-20.0); Calcium, Blood 8.1 mg/dL (8.5-10.1); Creatinine, Blood 0.76 mg/dL (0.60-1.20)
--- NOTE | 2023-01-12 06:40 | NUR ---
SHIFT SUMMARY PT POD 0 RIGHT TOTAL HIP, PT HAS RESTED OFF AND ON T/O THE NIGHT. PAIN HAS BEEN WELL CONTROLLED WITH MEDS PER EMAR. DRESSING IS INTACT TO RIGHT HIP. PT DENIES N/T IN EXT. HE HAS BEEN UP AMBULATING, AND HAS VOIDED. TOLERATING PO INTAKE. PT DENIES N/V. RESP E/U ON RA, SKIN WARM AND DRY. VITALS ARE STABLE. PT REPORTS INDIGESTION TYPE PAIN IN CHEST THIS AM CLOSE TO 0500, THAT RESOLVED WITH BELCHING AND AMBULATION. PT STATES HE GETS THIS PAIN ALL OF THE TIME. PIPELAYER MADE AWARE. PLAN IS FOR PT/OT AND DISCHARGE TODAY. BED IN LOWEST POSITION, CALL LIGHT WITHIN REACH.
[2023-01-12 07:37] VITALS: BP 138/69
[2023-01-12] MEDS ORDERED: Percocet 5-3251 EACH PO (09:13)
[2023-01-12] MEDS ORDERED: ASPI81CH PO (09:13)
--- NOTE | 2023-01-12 10:00 | NUR ---
DISCHARGE PT A&OX4, VSS/RA, MICHAEL PO, VOIDING, AMB SBA FWW/GB, PAIN MANAGED, IV DC'D. DC INS PROVIDED TO PT AND SPOUSE; REPORTED UNDERSTANDING THOSE INSTRUCTIONS. LEFT FLOOR VIA WC WITH PSYCHOLOGIST EDUCATIONAL TO GO HOME WITH SPOUSE AND SALES REPRESENTATIVE, WITH ALL PERSONAL POSSESSIONS INCLUDING DC PACKET.
== END 2023-01-12 10:07 | disposition home or self-care (01) ==
LOC: ORSCMMR 09:16 → ORD 11:00 → ORSCMMR 11:00 → SURS 15:18 → ORSCMMR 01-12 10:07 → SURS 01-12 10:07
PROVIDERS: Orthopaedic Surgery
PROC: 0SR90JZ Replacement of Right Hip Joint with Synthetic Substitute, Open Approach (ICD-10-PCS; principal; 2023-01-11 11:00)
DX: M16.11 Unilateral primary osteoarthritis, right hip (principal); M87.9 Osteonecrosis, unspecified; I10 Essential (primary) hypertension; G47.33 Obstructive sleep apnea (adult) (pediatric); E66.01 Morbid (severe) obesity due to excess calories; Z68.41 Body mass index [BMI] 40.0-44.9, adult; I25.2 Old myocardial infarction; I25.10 Atherosclerotic heart disease of native coronary artery without angina pectoris; Z79.899 Other long term (current) drug therapy
CPT/HCPCS: 27130; 0054T; 36415; 72170; 80048; 85025; 97110; 97116; 97162; 97530; A9270; C1776; J0171; J0690; J0735; J1885; J2250; J2371; J2704; J2795; J3010; J7120

== ENCOUNTER → 2023-10-20 | Outpatient (CLI) | payer OTHER ==
[2023-10-20 10:40] LABS: BASOPHILS ABSOLUTE AUTO 0.06 K/mm3 (0.00-0.23); BASOPHILS PERCENT AUTO 1 % (0-2); EOSINOPHILS ABSOLUTE AUTO 0.16 K/mm3 (0.00-0.68); EOSINOPHILS PERCENT AUTO 2 % (0-6); Hematocrit 36.7 % (37.0-53.0); Hemoglobin 11.6 g/dL (13.5-17.5); IMMATURE GRAN ABSOLUTE AUTO 0.02 K/mm3 (0.00-0.10); IMMATURE GRAN PERCENT AUTO 0 % (0-1); LYMPHOCYTES PERCENT AUTO 18 % (21-46); MONOCYTES ABSOLUTE AUTO 0.62 K/mm3 (0.16-1.47); MONOCYTES PERCENT AUTO 9 % (4-13); Mean Corpuscular HGB 28.4 pg (26.0-34.0); Mean Corpuscular HGB Conc 31.6 g/dL (31.5-36.5); Mean Corpuscular Volume 90 fL (80-100); NEUTROPHILS ABSOLUTE AUTO 5.01 K/mm3 (1.96-9.15); NEUTROPHILS PERCENT AUTO 70 % (41-73); Platelet Count 172 K/mm3 (150-400); RDW Coefficient Variation 14.8 % (11.7-14.2); RDW Standard Deviation 48.8 fL (35.1-46.3); RETICULOCYTE ABSOLUTE 0.0871 M/mm3 (0.0200-0.1100); RETICULOCYTE COUNT PERCENT 2.13 % (0.50-2.50); Red Blood Cell Count 4.09 M/mm3 (4.30-5.90); White Blood Cell Count 7.17 K/mm3 (4.00-11.30)
== END | disposition home or self-care (01) ==
LOC: LAB SHORT 10:17 → LAB 10:17
PROVIDERS: Family Medicine
DX: D51.0 Vitamin B12 deficiency anemia due to intrinsic factor deficiency (principal); M25.461 Effusion, right knee
CPT/HCPCS: 36415; 82607; 82746; 83540; 85025; 85045

== ENCOUNTER 2024-11-08 12:18 | Emergency (ER) | payer OTHER ==
[~2024-11-08] VITALS: Ht 167.6 cm; Wt 145.2 kg
[2024-11-08 12:30] VITALS: BP 195/77
[2024-11-08 12:53] LABS: BASOPHILS ABSOLUTE AUTO 0.06 K/mm3 (0.00-0.23); BASOPHILS PERCENT AUTO 1 % (0-2); EOSINOPHILS ABSOLUTE AUTO 0.11 K/mm3 (0.00-0.68); EOSINOPHILS PERCENT AUTO 1 % (0-6); Hematocrit 40.2 % (37.0-53.0); Hemoglobin 12.8 g/dL (13.5-17.5); IMMATURE GRAN ABSOLUTE AUTO 0.03 K/mm3 (0.00-0.10); IMMATURE GRAN PERCENT AUTO 0 % (0-1); LYMPHOCYTES ABSOLUTE AUTO 1.68 K/mm3 (0.84-5.20); LYMPHOCYTES PERCENT AUTO 17 % (21-46); MONOCYTES ABSOLUTE AUTO 0.86 K/mm3 (0.16-1.47); MONOCYTES PERCENT AUTO 9 % (4-13); Mean Corpuscular HGB Conc 31.8 g/dL (31.5-36.5); Mean Corpuscular Volume 95 fL (80-100); NEUTROPHILS ABSOLUTE AUTO 7.12 K/mm3 (1.96-9.15); NEUTROPHILS PERCENT AUTO 72 % (41-73); NRBC ABSOLUTE 0.00 K/mm3 (0.00-0.02); NRBC Auto 0.0 /100 WBC (0.0-0.2); Platelet Count 143 K/mm3 (150-400); RDW Coefficient Variation 14.2 % (11.7-14.2); RDW Standard Deviation 49.0 fL (35.1-46.3)
[2024-11-08 13:06] LABS: Alanine Aminotransfer (ALT/SGP 52.0 U/L (12-78); Albumin, Blood 3.3 g/dL (3.4-5.0); Albumin/Globulin Ratio 0.7 (0.8-1.8); Anion Gap 12.0 mmol/L (3-11); Aspartate Aminotrans (AST/SGOT 137.0 U/L (12-37); Bilirubin, Total 0.6 mg/dL (0.1-1.0); Blood Urea Nitrogen 13.0 mg/dL (8-24); CO2, Blood 24.0 mmol/L (21-32); Calcium, Blood 8.4 mg/dL (8.5-10.1); Chloride, Blood 106.0 mmol/L (98-108); Creatinine, Blood 0.75 mg/dL (0.60-1.20); Globulin, Blood 4.8 g/dL (2.2-4.0); Glucose, Blood 107.0 mg/dL (70-99); Potassium, Blood 4.2 mmol/L (3.5-5.5); Sodium, Blood 138.0 mmol/L (136-145); Total Protein, Blood 8.1 g/dL (6.4-8.2)
[2024-11-09] MEDS ORDERED: VALS80 PO (01:59)
[2024-11-09] MEDS ORDERED: OMEP20ER PO (09:03)
[2024-11-09] MEDS ORDERED: INDO50 PO (09:04)
== END 2024-11-08 16:15 | disposition home or self-care (01) ==
LOC: ER 12:18
PROVIDERS: Student in an Organized Health Care Education/Training Program
DX: I10 Essential (primary) hypertension (principal); R09.82 Postnasal drip
CPT/HCPCS: 71046; 80053; 85025; 93005; 93010; 99284-25

== ENCOUNTER 2024-11-08 16:58 | Inpatient (IN) | payer OTHER ==
[~2024-11-08] VITALS: Ht 167.6 cm; Wt 146.0 kg
[2024-11-08] MEDS ORDERED: Dexamethasone Sod Phos 10 MG/ML 1ML VIAL IV ONE (18:00)
[2024-11-08 18:18] LABS: BASOPHILS ABSOLUTE AUTO 0.06 K/mm3 (0.00-0.23); BASOPHILS PERCENT AUTO 1 % (0-2); EOSINOPHILS ABSOLUTE AUTO 0.05 K/mm3 (0.00-0.68); EOSINOPHILS PERCENT AUTO 1 % (0-6); Hematocrit 37.9 % (37.0-53.0); Hemoglobin 12.0 g/dL (13.5-17.5); IMMATURE GRAN ABSOLUTE AUTO 0.04 K/mm3 (0.00-0.10); IMMATURE GRAN PERCENT AUTO 0 % (0-1); LYMPHOCYTES ABSOLUTE AUTO 0.91 K/mm3 (0.84-5.20); LYMPHOCYTES PERCENT AUTO 10 % (21-46); MONOCYTES ABSOLUTE AUTO 0.69 K/mm3 (0.16-1.47); MONOCYTES PERCENT AUTO 8 % (4-13); Mean Corpuscular HGB Conc 31.7 g/dL (31.5-36.5); Mean Corpuscular Volume 93 fL (80-100); NEUTROPHILS ABSOLUTE AUTO 7.18 K/mm3 (1.96-9.15); NEUTROPHILS PERCENT AUTO 80 % (41-73); NRBC ABSOLUTE 0.00 K/mm3 (0.00-0.02); NRBC Auto 0.0 /100 WBC (0.0-0.2); Platelet Count 125 K/mm3 (150-400); RDW Coefficient Variation 14.2 % (11.7-14.2); RDW Standard Deviation 48.1 fL (35.1-46.3)
[2024-11-08 19:09] LABS: Alanine Aminotransfer (ALT/SGP 46.0 U/L (12-78); Albumin, Blood 3.3 g/dL (3.4-5.0); Albumin/Globulin Ratio 0.7 (0.8-1.8); Anion Gap 13.0 mmol/L (3-11); Aspartate Aminotrans (AST/SGOT 100.0 U/L (12-37); Bilirubin, Total 1.0 mg/dL (0.1-1.0); Blood Urea Nitrogen 15.0 mg/dL (8-24); CO2, Blood 26.0 mmol/L (21-32); Calcium, Blood 8.2 mg/dL (8.5-10.1); Chloride, Blood 105.0 mmol/L (98-108); Creatinine, Blood 0.8 mg/dL (0.60-1.20); Globulin, Blood 4.5 g/dL (2.2-4.0); Glucose, Blood 134.0 mg/dL (70-99); Potassium, Blood 3.5 mmol/L (3.5-5.5); Sodium, Blood 140.0 mmol/L (136-145); Total Protein, Blood 7.8 g/dL (6.4-8.2)
[2024-11-08] MEDS ORDERED: Ampicillin Sod/Sulbactam Sod 3 GM in NS 100 ML IV ONE ×2 (21:20→23:30)
[2024-11-09] VITALS (18 sets, daily range): BP systolic 163–202; BP diastolic 78–110
[2024-11-09] MEDS ORDERED: FLU VACC TS2025-26(6MOS UP)/PF 45 MCG/0.5 ML SYRINGE IM SCH (00:15)
[2024-11-09] MEDS ORDERED: Ampicillin Sod/Sulbactam Sod 3 GM in NS 100 ML IV SCH ×2 (00:22→06:00)
[2024-11-09 01:36] LABS: BASOPHILS ABSOLUTE AUTO 0.04 K/mm3 (0.00-0.23); BASOPHILS PERCENT AUTO 1 % (0-2); EOSINOPHILS ABSOLUTE AUTO 0.00 K/mm3 (0.00-0.68); EOSINOPHILS PERCENT AUTO 0 % (0-6); Hematocrit 38.7 % (37.0-53.0); Hemoglobin 12.4 g/dL (13.5-17.5); IMMATURE GRAN ABSOLUTE AUTO 0.03 K/mm3 (0.00-0.10); IMMATURE GRAN PERCENT AUTO 0 % (0-1); LYMPHOCYTES ABSOLUTE AUTO 0.58 K/mm3 (0.84-5.20); LYMPHOCYTES PERCENT AUTO 8 % (21-46); MONOCYTES ABSOLUTE AUTO 0.09 K/mm3 (0.16-1.47); MONOCYTES PERCENT AUTO 1 % (4-13); Mean Corpuscular HGB Conc 32.0 g/dL (31.5-36.5); Mean Corpuscular Volume 94 fL (80-100); NEUTROPHILS ABSOLUTE AUTO 6.71 K/mm3 (1.96-9.15); NEUTROPHILS PERCENT AUTO 90 % (41-73); NRBC ABSOLUTE 0.00 K/mm3 (0.00-0.02); NRBC Auto 0.0 /100 WBC (0.0-0.2); Platelet Count 136 K/mm3 (150-400); RDW Coefficient Variation 14.2 % (11.7-14.2); RDW Standard Deviation 49.2 fL (35.1-46.3)
[2024-11-09] MEDS ORDERED: VALS80 PO (01:59)
[2024-11-09 02:02] LABS: Alanine Aminotransfer (ALT/SGP 43.0 U/L (12-78); Albumin, Blood 3.3 g/dL (3.4-5.0); Albumin/Globulin Ratio 0.7 (0.8-1.8); Anion Gap 11.0 mmol/L (3-11); Aspartate Aminotrans (AST/SGOT 69.0 U/L (12-37); Bilirubin, Total 1.0 mg/dL (0.1-1.0); Blood Urea Nitrogen 14.0 mg/dL (8-24); CO2, Blood 25.0 mmol/L (21-32); Calcium, Blood 8.4 mg/dL (8.5-10.1); Chloride, Blood 104.0 mmol/L (98-108); Creatinine, Blood 0.67 mg/dL (0.60-1.20); Globulin, Blood 4.8 g/dL (2.2-4.0); Glucose, Blood 178.0 mg/dL (70-99); Potassium, Blood 4.0 mmol/L (3.5-5.5); Sodium, Blood 136.0 mmol/L (136-145); Total Protein, Blood 8.1 g/dL (6.4-8.2)
--- NOTE | 2024-11-09 02:31 | NUR ---
MD NOTIFICATION CALLED DR PEREZ FOR PT BP 183/110. TO PUT SOME MEDICATION ORDER IN
[2024-11-09] MEDS ORDERED: HydrALAZINE HCl 20 MG / ML 1ML Vial IV PRN (03:35)
--- NOTE | 2024-11-09 05:52 | NUR ---
MD NOTIFICATION MD PEREZ PAGED FOR BP UNCHANGED W PRN APRESOLINE ADMINISTRATION. MD TO LOOK INTO THE MEDS AND MAY ORDER SOMETHING ELSE. PT ASYMTOMATIC AND SLEEPING. WAITING FOR ORDERS
[2024-11-09] MEDS ORDERED: Pantoprazole Sodium 40 MG Injection IV SCH (06:00)
--- NOTE | 2024-11-09 06:06 | NUR ---
PT ADMITTED FROM ER AT 0103. PT ABLE TO TRANSFER OFF THE STRETCHER W ONE PERSON ASSIST. PT ON 2 LITERS NC AND MAINTAINED SATS OVERNIGHT. PT DID NOT WANT RN TO TITRATE O2 PT RECQUIRED FOR COMFORT. PT STILL SLEEPING IN HIGH FOWLERS. IV ABX SCHEDULED FOR ASP PNU. PT STILL C/O OF NASAL DRIP AND REFUSED SUCTION HE SAYS THERE IS NOTHING HE IS COUGHING UP. PT TRIED TO HAVE BM BUT JUST PASSED GAS. PT REFUSING URINAL AND WANTS TO SIT ON TOILET TO VOID URINE. PAGED FOR PT ELEVATED BP AND PRN APRESOLINE GIVEN. REPAGED THAT THIS WAS NOT EFFECTIVE IN LOWERING BP. MD MAHMOODMITJj TO EVAL CHART AND MAY ORDER SOMETHING ELSE. PT DENIES DOUBLE VISION, HEADACHE OR SYMPTOMS OF HIGH BP.
[2024-11-09] MEDS ORDERED: Enoxaparin 40 MG/0.4 ML SYR SC SCH (09:00)
[2024-11-09] MEDS ORDERED: Lactobacil 2-S.Thermo-Bifido 1 1 Cap PO SCH (09:00)
[2024-11-09] MEDS ORDERED: Fluticasone 0.05% Nasal Spray SCH (09:00)
[2024-11-09] MEDS ORDERED: OMEP20ER PO (09:03)
[2024-11-09] MEDS ORDERED: INDO50 PO (09:04)
--- NOTE | 2024-11-09 12:05 | NUR ---
SHIFT NOTE: PATIENT IS ALERT AND ORIENTED X 4 ABLE TO MAKE NEEDS KNOWN, DENIES CHEST PAIN PRESSURE OR SOB AT REST. ON ASSUMPTION AT 2L CURRENLTY ON RA SPO2 >92%. PATIENT IS TREMULOUS AND ENDORSES LAST DRINK ON TUESDAY, PINT AND A 24 OUNCE BEER DAILY, DENIES ETOH SYMPTOMS, HOWEVER, CIWA SCORE OF 3-4 FOR THIS RN HOSPITALIST INFORMED. SPEECH THERAPY HAS SEEN PLAN; FOR BARIUM SWALLOW, BUT OK FOR REGULAR FOOD, MED PRECAUTION OF MED WHOLE WITH PUREE. PATIENT TOLERATED LARGER PILL THIS WAY. HYPERTENSIVE FOR THIS RN THIS AM IMPROVED AND NOW SLOWLY INCREASING IN BP. NEW BP MEDS STARTED THIS AM. ONLY ACUTE CONCERN IS BLOOD PRESSURE AT THIS TIME. PLAN OF CARE CONTINUES. ABLE TO HAVE A LOOSE BM TODAY, DENIED BOWEL MEDS FROM THIS RN.
[2024-11-09] MEDS ORDERED: Labetalol HCL 5 MG/ML 4ML Injection (Single Dose) IV PRN ×2 (12:20→16:05)
--- NOTE | 2024-11-09 15:55 | NUR ---
EOS: PATIENT WITH NO ACUTE CHANGES FROM SHIFT NOTE. TITO RECOMMENDED ENT FOLLOW UP, BARIUM WNL, NO ACUTE CHANGES. CIWA PREFORMED Q4 HIGHEST SCORE OF A 5 FOR TREMOR AND SWEAT. DENIED SOB. ON RA SPO2 >92%. INTERMITTENT, BLOOD PRESSURE STILL ELEVATED. COUGH STILL PRESENT, SPEECH RECOMMENDED ENT TO EVALUATE. PATIENT GIVEN PRN LABETOLOL WITH MINIMAL AFFECT. PLAN OF CARE CONTINUES
--- NOTE | 2024-11-09 16:21 | NUR ---
INCREASED HR: SPOKE WITH CLAIRE DE LUNA TO GIVE COZAAR NOW. AND HE PLACED NEW RANGES ON LABATOLOL. CONTINUE TO MONITOR.
[2024-11-10 03:31] VITALS: BP 167/76
--- NOTE | 2024-11-10 06:12 | NUR ---
NO ACUTE EVENTS OVERNIGHT. PT REQUESTED MEDICATION FOR ANXIETY. STARTER CUP POWDER MIXER PROVIDER NOTIFIED. MED GIVEN ORDERED. PT SLEPT WITH CPAP ON INTERMITTENTLY. PT ABLE TO AMBULATE TO TOILET WITH STANDBY ASSISTANCE. BEDLOCKED IN LOWEST POSITION. CALL LIGHT WITHIN REACH. VSS.
[2024-11-10 07:05] LABS: Hematocrit 37.7 % (37.0-53.0); Hemoglobin 11.6 g/dL (13.5-17.5); Mean Corpuscular HGB Conc 30.8 g/dL (31.5-36.5); Mean Corpuscular Volume 97 fL (80-100); NRBC ABSOLUTE 0.00 K/mm3 (0.00-0.02); NRBC Auto 0.0 /100 WBC (0.0-0.2); Platelet Count 132 K/mm3 (150-400); RDW Coefficient Variation 14.6 % (11.7-14.2); RDW Standard Deviation 51.9 fL (35.1-46.3)
[2024-11-10 07:21] LABS: Albumin, Blood 2.9 g/dL (3.4-5.0); Anion Gap 9 mmol/L (3-11); Blood Urea Nitrogen 15 mg/dL (8-24); CO2, Blood 27 mmol/L (21-32); Calcium, Blood 8.4 mg/dL (8.5-10.1); Chloride, Blood 106 mmol/L (98-108); Creatinine, Blood 0.72 mg/dL (0.60-1.20); Glucose, Blood 125 mg/dL (70-99); Magnesium, Blood 1.7 mg/dL (1.6-2.4); Phosphorus, Blood 2.7 mg/dL (2.5-4.9); Potassium, Blood 3.4 mmol/L (3.5-5.5); Sodium, Blood 139 mmol/L (136-145)
[2024-11-10 08:46] VITALS: BP 135/63
[2024-11-10 11:23] VITALS: BP 136/64
[2024-11-10 16:22] VITALS: BP 139/74
--- NOTE | 2024-11-10 17:06 | NUR ---
SHIFT SUMMARY NO ACUTE CHANGES THIS SHIFT. PT A&OX4, ANXIOUS OCCASIONALLY. SP02>90% ON RA, DESATS WHILE SLEEPING. SLEEP OXIMETRY ORDERED FOR TONIGHT. PT HOPES TO QUALIFY FOR NC. REFUSED CPAP THIS SHIFT. C/O OF POST NASAL DRIP. NON PRODUCTIVE COUGH. TELEMETRY SHOWS NSR, HR 70'S. DENIES PAIN. UP TO BATHROOM SBA TO VOID AND HAVE BM THIS SHIFT. UP TO SHOWER THIS AM. DOWN TO IMAGING FOR CHEST CT, SEE RESULTS. PT UP IN RECLINER FOR AFTERNOON. CURRENTLY IN BED WATCHING FOOTBALL. IN ROOM MOST OF DAY. CALL LIGHT IN REACH.
[2024-11-10 19:38] VITALS: BP 150/77
[2024-11-10 23:09] VITALS: BP 134/72
[2024-11-11 05:29] VITALS: BP 154/83
--- NOTE | 2024-11-11 06:14 | NUR ---
NO ACUTE EVENTS OVERNIGHT. PT'S SLEEP STUDY PERFORMED BY RT. PT CALLED APPROPRIATELY TO GO TO BATHROOM. VSS. BED LOCKED IN LOWEST POSITION. CALL LIGHT WITHIN REACH.
[2024-11-11 06:29] LABS: Hematocrit 35.9 % (37.0-53.0); Hemoglobin 11.0 g/dL (13.5-17.5); Mean Corpuscular HGB Conc 30.6 g/dL (31.5-36.5); Mean Corpuscular Volume 97 fL (80-100); NRBC ABSOLUTE 0.00 K/mm3 (0.00-0.02); NRBC Auto 0.0 /100 WBC (0.0-0.2); Platelet Count 122 K/mm3 (150-400); RDW Coefficient Variation 14.5 % (11.7-14.2); RDW Standard Deviation 50.6 fL (35.1-46.3)
[2024-11-11 06:46] LABS: Albumin, Blood 2.8 g/dL (3.4-5.0); Anion Gap 6 mmol/L (3-11); Blood Urea Nitrogen 17 mg/dL (8-24); CO2, Blood 29 mmol/L (21-32); Calcium, Blood 8.2 mg/dL (8.5-10.1); Chloride, Blood 107 mmol/L (98-108); Creatinine, Blood 0.71 mg/dL (0.60-1.20); Glucose, Blood 99 mg/dL (70-99); Phosphorus, Blood 3.3 mg/dL (2.5-4.9); Potassium, Blood 3.4 mmol/L (3.5-5.5); Sodium, Blood 139 mmol/L (136-145)
[2024-11-11 07:01] VITALS: BP 140/79
[2024-11-11] MEDS ORDERED: HYDCHL25 PO (11:12)
[2024-11-11] MEDS ORDERED: AMOCLA875 PO (11:15)
[2024-11-11 11:35] VITALS: BP 158/78
--- NOTE | 2024-11-11 14:22 | NUR ---
DISCHARGE NOTE PT A&OX4, VSS. IV'S REMOVED. TELEMETRY REMOVED. DISCHARGE PAPERWORK REVIEWED W/ PT AND . MEDICATIONS FAXED TO [facility] PER PT REQUEST. PT'S STATED RECEIVED NOTIFICATION TEXT FROM [facility]. MEDICATION CHANGES REVIEWED W/ PT AND . VERBALIZED UNDERSTANDING. COURTNEY OCONNOR [facility] IN ROOM TO TOUCH BASE W/ PT FOR HOME NOC 02. PLANS TO MEET PT AND PT'S HOUSE. PT WHEELED TO PRIVATE VEHICLE WITH ALL PERSONAL BELONGINGS.
== END 2024-11-11 14:35 | disposition home or self-care (01) | DRG 177 ==
LOC: ER 16:58 → PCU 22:14
PROVIDERS: Emergency Medicine; Internal Medicine; Student in an Organized Health Care Education/Training Program; ADMIT Internal Medicine
DX: J69.0 Pneumonitis due to inhalation of food and vomit (principal); J96.01 Acute respiratory failure with hypoxia; J18.9 Pneumonia, unspecified organism; I10 Essential (primary) hypertension; E78.00 Pure hypercholesterolemia, unspecified; M10.9 Gout, unspecified; D69.6 Thrombocytopenia, unspecified; I25.10 Atherosclerotic heart disease of native coronary artery without angina pectoris; K21.9 Gastro-esophageal reflux disease without esophagitis; I35.0 Nonrheumatic aortic (valve) stenosis; F10.10 Alcohol abuse, uncomplicated; G47.33 Obstructive sleep apnea (adult) (pediatric); J30.9 Allergic rhinitis, unspecified; Z99.89 Dependence on other enabling machines and devices; I25.2 Old myocardial infarction; Z98.890 Other specified postprocedural states; Z87.19 Personal history of other diseases of the digestive system; Z79.82 Long term (current) use of aspirin; Z79.891 Long term (current) use of opiate analgesic; Z79.899 Other long term (current) drug therapy; Z95.5 Presence of coronary angioplasty implant and graft
CPT/HCPCS: 36415; 70491; 71045; 71250; 74230; 80053; 80069; 83735; 83880; 84145; 84484; 85025; 85027; 92610; 92611; 93005; 93010; 94640; 94660; 94664; 94762; 96374; 99285; A9270; J0295; J0360; J1100; J1650; J2470; J7120; Q9967

== ENCOUNTER 2024-12-10 20:01 | Inpatient (IN) | payer OTHER ==
[~2024-12-10] VITALS: Ht 165.1 cm; Wt 141.0 kg
[~2024-12-10 20:01] MED LIST changes: +AMOCLA875 PO; +OMEP20ER PO; +VALS80 PO
[2024-12-10 20:49] LABS: BASOPHILS ABSOLUTE AUTO 0.06 K/mm3 (0.00-0.23); BASOPHILS PERCENT AUTO 1 % (0-2); EOSINOPHILS ABSOLUTE AUTO 0.31 K/mm3 (0.00-0.68); EOSINOPHILS PERCENT AUTO 4 % (0-6); Hematocrit 39.5 % (37.0-53.0); Hemoglobin 12.8 g/dL (13.5-17.5); IMMATURE GRAN ABSOLUTE AUTO 0.04 K/mm3 (0.00-0.10); IMMATURE GRAN PERCENT AUTO 1 % (0-1); LYMPHOCYTES ABSOLUTE AUTO 2.75 K/mm3 (0.84-5.20); LYMPHOCYTES PERCENT AUTO 33 % (21-46); MONOCYTES ABSOLUTE AUTO 0.78 K/mm3 (0.16-1.47); MONOCYTES PERCENT AUTO 9 % (4-13); Mean Corpuscular HGB Conc 32.4 g/dL (31.5-36.5); Mean Corpuscular Volume 89 fL (80-100); NEUTROPHILS ABSOLUTE AUTO 4.32 K/mm3 (1.96-9.15); NEUTROPHILS PERCENT AUTO 52 % (41-73); NRBC ABSOLUTE 0.00 K/mm3 (0.00-0.02); NRBC Auto 0.0 /100 WBC (0.0-0.2); Platelet Count 192 K/mm3 (150-400); RDW Coefficient Variation 13.6 % (11.7-14.2); RDW Standard Deviation 44.7 fL (35.1-46.3)
[2024-12-10 21:23] LABS: Salicylate <1.7 mg/dL (2.8-20.0)
[2024-12-10 21:42] LABS: Ethanol (Alcohol), Blood, Med 286 mg/dL
[2024-12-10 21:49] LABS: Acetaminophen, Random <2.0 ug/mL (10.0-30.0); Alanine Aminotransfer (ALT/SGP 68 U/L (12-78); Albumin, Blood 3.4 g/dL (3.4-5.0); Albumin/Globulin Ratio 0.8 (0.8-1.8); Anion Gap 11 mmol/L (3-11); Aspartate Aminotrans (AST/SGOT 78 U/L (12-37); Bilirubin, Total 0.3 mg/dL (0.1-1.0); Blood Urea Nitrogen 16 mg/dL (8-24); CO2, Blood 26 mmol/L (21-32); Calcium, Blood 8.4 mg/dL (8.5-10.1); Chloride, Blood 102 mmol/L (98-108); Creatinine, Blood 0.80 mg/dL (0.60-1.20); Globulin, Blood 4.2 g/dL (2.2-4.0); Glucose, Blood 142 mg/dL (70-99); Potassium, Blood 3.8 mmol/L (3.5-5.5); Sodium, Blood 135 mmol/L (136-145); Total Protein, Blood 7.6 g/dL (6.4-8.2)
[2024-12-10] MEDS ORDERED: LORazepam 2 MG/ML 1ML Injection IM ONE (22:20)
[2024-12-10] MEDS ORDERED: Ondansetron HCl 2 MG / ML 2ML Vial IV PRN (23:45)
[2024-12-10] MEDS ORDERED: LORazepam 2 MG/ML 1ML Injection IV PRN (23:45)
[2024-12-10] MEDS ORDERED: FLU VACC TS2025(65UP)/MF59C/PF 45 MCG/0.5 ML SYRINGE IM SCH (23:45)
[2024-12-11] VITALS (43 sets, daily range): BP systolic 118–201; BP diastolic 66–115
--- NOTE | 2024-12-11 02:12 | NUR ---
ARRIVAL TO ICU: PT ARRIVED TO ICU BED 02 VIA GURNEY FROM ER AT 0131. PT REQUIRED MULTIPLE STAFF TO SLIDE ACROSS TO ICU BED. PT RESPONDS TO VERBAL STIMULI BUT HAS A HARD TIME HOLDING A CONVERSATION. FREQUENTLY MUMBLES AND ATTEMPTS TO REACH FOR OBJECTS IN THE AIR. PT ATTMEPTING TO PULL AT LINES AND WIRES EVEN WHILE SLEEPING. MEDICATED PER APR. PT DENIES SI WHEN ASKED AND SHOUTS HE WANTS TO GO HOME. PT ON 4L VIA OXYMASK WITH SATS >94%. PT DESATS TO 80% AT TIMES WHILE SLEEPING, REFUSES CPAP. LUNGS DIM T/O. TANK PROCESSOR IN PLACE, SR WITH HR 80'S-90'S. SBP 140'S. PUREWICK IN PLACE TO SUCTION. 1:1 SITTER AT THE DOORWAY. PIV TO LH PATENT AND INFUSING THIAMINE. BED LOCKED AND LOW.
[2024-12-11] MEDS ORDERED: HydrALAZINE HCl 20 MG / ML 1ML Vial IV PRN (02:25)
[2024-12-11 02:57] LABS: Source, Urine Clean Catch
[2024-12-11 03:05] LABS: Bilirubin, Urine Neg (Neg); Glucose Qualitative, Urine Neg (Neg); Ketones, Urine Neg (Neg); Leukocyte Esterase, Urine Neg (Neg); Protein, Urine Neg (Neg); Specific Gravity, Urine 1.010 (1.003-1.022); Urobilinogen, Urine NORM (Normal)
[2024-12-11 03:07] LABS: Color, Urine Yellow (P-Yellow)
[2024-12-11 03:17] LABS: U Amphetamine Screen Not Detected; U Barbiturate Screen Not Detected; U Benzodiazapine Screen Not Detected; U Buprenorphine Screen Not Detected; U Cannabinoids Screen Not Detected; U Cocaine Screen Not Detected; U Methadone Screen Not Detected; U Methamphetamine Screen Not Detected; U Opiates Screen Not Detected; U Oxycodone Screen Not Detected; U Phencyclidine Screen Not Detected
[2024-12-11 03:22] LABS: BASOPHILS ABSOLUTE AUTO 0.05 K/mm3 (0.00-0.23); BASOPHILS PERCENT AUTO 1 % (0-2); EOSINOPHILS ABSOLUTE AUTO 0.32 K/mm3 (0.00-0.68); EOSINOPHILS PERCENT AUTO 4 % (0-6); Hematocrit 35.7 % (37.0-53.0); Hemoglobin 11.3 g/dL (13.5-17.5); IMMATURE GRAN ABSOLUTE AUTO 0.03 K/mm3 (0.00-0.10); IMMATURE GRAN PERCENT AUTO 0 % (0-1); LYMPHOCYTES ABSOLUTE AUTO 3.10 K/mm3 (0.84-5.20); LYMPHOCYTES PERCENT AUTO 36 % (21-46); MONOCYTES ABSOLUTE AUTO 0.93 K/mm3 (0.16-1.47); MONOCYTES PERCENT AUTO 11 % (4-13); Mean Corpuscular HGB Conc 31.7 g/dL (31.5-36.5); Mean Corpuscular Volume 90 fL (80-100); NEUTROPHILS ABSOLUTE AUTO 4.26 K/mm3 (1.96-9.15); NEUTROPHILS PERCENT AUTO 49 % (41-73); NRBC ABSOLUTE 0.00 K/mm3 (0.00-0.02); NRBC Auto 0.0 /100 WBC (0.0-0.2); Platelet Count 164 K/mm3 (150-400); RDW Coefficient Variation 13.7 % (11.7-14.2); RDW Standard Deviation 45.1 fL (35.1-46.3)
[2024-12-11 04:01] LABS: Alanine Aminotransfer (ALT/SGP 62.0 U/L (12-78); Albumin, Blood 3.2 g/dL (3.4-5.0); Albumin/Globulin Ratio 0.9 (0.8-1.8); Anion Gap 9.0 mmol/L (3-11); Aspartate Aminotrans (AST/SGOT 67.0 U/L (12-37); Bilirubin, Total 0.2 mg/dL (0.1-1.0); Blood Urea Nitrogen 17.0 mg/dL (8-24); CO2, Blood 29.0 mmol/L (21-32); Calcium, Blood 8.0 mg/dL (8.5-10.1); Chloride, Blood 105.0 mmol/L (98-108); Creatinine, Blood 0.67 mg/dL (0.60-1.20); Globulin, Blood 3.6 g/dL (2.2-4.0); Glucose, Blood 141.0 mg/dL (70-99); Potassium, Blood 3.8 mmol/L (3.5-5.5); Sodium, Blood 139.0 mmol/L (136-145); Thyroid Stimulating Hormone 1.84 uIU/mL (0.360-4.800); Total Protein, Blood 6.8 g/dL (6.4-8.2)
[2024-12-11 04:34] LABS: Magnesium, Blood 1.8 mg/dL (1.6-2.4)
--- NOTE | 2024-12-11 04:40 | NUR ---
UPDATE: PT CONTINUING TO HAVE HALLUCINATIONS AND CONTINUES TO PULL AT LINES AND WIRES. CONTINUALLY REACHING FOR THINGS IN THE AIR, HOLLERING OUT AND STRIPPING HIMSELF NAKED. PT ALSO CONTINUING TO HAVE PERIODS OF DESATURATION AND APNEA. DR. GARCIA MADE AWARE AND ORDER GIVEN TO START PRECEDEX AND BIPAP. PRECEDEX INITIATED AT 0.3 MCG/KG/HR AND BIPAP AT 20/10 WITH 6L BLEED IN. PT APPEARS TO BE TOLERATING WELL AT THIS TIME. PT ALSO HAD AN 8 BEAT RUN OF VTACH, ORDER GIVEN FOR 2G IV MAG.
[2024-12-11] MEDS ORDERED: Magnesium Sulf 2 GM/Water 50ML 50 ML IV ONE (04:45)
--- NOTE | 2024-12-11 05:28 | NUR ---
SHIFT SUMMARY: NO ACUTE CHANGES SINCE LAST UPDATE NOTE. PT ON BIPAP SETTINGS UNCHANGED. PRECEDEX INFUSING AT 0.3 MCG/KG/HR. PIV TO LH AND RAC BOTH PATENT. NEURO STATUS UNCHANGED. CONTINUING TO VOID WITH PUREWICK TO SUCTION. 1:1 SITTER AT DOORWAY. REMAINS IN SR-ST WITH PVC'S. HR 90-110'S. SBP IMPROVED SINCE DOSE OF HYDRALAZINE, SBP 120'S. BED LOW AND LOCKED.
--- NOTE | 2024-12-11 12:13 | NUR ---
RING TARNISHED SILVER COLORED RING REMOVED FROM L HAND. PLACED IN SPECIMEN CUP WITH PT LABEL AND LOCKED IN LOCK BOX IN ICU 2.
--- NOTE | 2024-12-11 12:16 | NUR ---
UPDATE DR DILL AT BEDSIDE FOR EVAL. PRECEDEX OFF AT 0945, PT WAKENS TO VERBAL STIMULI, ANSWERS YES/NO QUESTIONS, ABLE TO FOLLOW SIMPLE COMMANDS BUT REMAINS TOO SOMNOLENT FOR PURPOSEFUL CONVERSATION. PLAN FOR DR DILL TO ATTEMPT EVAL TOMORROW. BED IN LOW POSITION, 1:[address] FOR SAFETY.
--- NOTE | 2024-12-11 15:13 | NUR ---
UPDATE PT'S AVA AT BEDSIDE AND UPDATED. HOME MED LIST RECONCILED WITH HER. SHE STS PT "SOMETIMES TAKES HIS WATER PILL". SHE STS THAT A FAMILY MEMBER IS REMOVING WEAPONS FROM HOME AND THAT HOME WILL BE A SAFE PLACE TO RETURN TO UPON DISCHARGE. PT BECOMING MORE ALERT AND PROVIDED ORIENTATION. PT EXPRESSES WANTING TO LEAVE, ENCOURAGED PT TO STAY. PT CURRENTLY WATCHING TV WITH SPOUSE AT BEDSIDE AT THIS TIME. BED IN LOW POSITION. 1:[address]
--- NOTE | 2024-12-11 16:00 | NUR ---
PT'S RING TAKEN HOME BY AVA
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
--- NOTE | 2024-12-11 21:19 | NUR ---
ASSUMPTION OF CARE: ASSUMED CARE OF PT AT 1900. PT ALERT AND ORIENTED. FOLLOWS DIRECTION AND MAKES NEEDS KNOWN. PT CURRENTLY DENYING SI. STATES HE NEVER WANTED TO HARM HIMSELF AND WANTS TO GO HOME. PT C/O LEFT THUMB PAIN, CALLED HOSPITALIST KATH WITH ORDERS FOR PRN PAIN MEDS. PT HAVING RELIEF WITH PAIN MEDS. ABLE TO WALK TO BATHROOM WITH WALKER AND NURSE ASSIST. VOIDING YELLOW URINE WITH PUREWICK IN PLACE TO SUCTION. PT ABLE TO HAVE A BOWEL MOVEMENT THIS SHIFT. PIV TO LH AND RAC, SALINE LOCKED. TOLERATING PO INTAKE. 1:1 SITTER AT BEDSIDE. ON MONITOR, ST WITH HR 110'S. SBP 180'S. DENIES CP. ON 4L NC WITH SPO2 >94%. DENIES SOB.
[2024-12-12] VITALS (14 sets, daily range): BP systolic 143–189; BP diastolic 74–104
[2024-12-12 04:58] LABS: BASOPHILS ABSOLUTE AUTO 0.03 K/mm3 (0.00-0.23); BASOPHILS PERCENT AUTO 0 % (0-2); EOSINOPHILS ABSOLUTE AUTO 0.15 K/mm3 (0.00-0.68); EOSINOPHILS PERCENT AUTO 2 % (0-6); Hematocrit 35.3 % (37.0-53.0); Hemoglobin 11.3 g/dL (13.5-17.5); IMMATURE GRAN ABSOLUTE AUTO 0.02 K/mm3 (0.00-0.10); IMMATURE GRAN PERCENT AUTO 0 % (0-1); LYMPHOCYTES ABSOLUTE AUTO 1.28 K/mm3 (0.84-5.20); LYMPHOCYTES PERCENT AUTO 15 % (21-46); MONOCYTES ABSOLUTE AUTO 0.76 K/mm3 (0.16-1.47); MONOCYTES PERCENT AUTO 9 % (4-13); Mean Corpuscular HGB Conc 32.0 g/dL (31.5-36.5); Mean Corpuscular Volume 91 fL (80-100); NEUTROPHILS ABSOLUTE AUTO 6.53 K/mm3 (1.96-9.15); NEUTROPHILS PERCENT AUTO 75 % (41-73); NRBC ABSOLUTE 0.00 K/mm3 (0.00-0.02); NRBC Auto 0.0 /100 WBC (0.0-0.2); Platelet Count 144 K/mm3 (150-400); RDW Coefficient Variation 13.8 % (11.7-14.2); RDW Standard Deviation 45.6 fL (35.1-46.3)
[2024-12-12 05:17] LABS: Anion Gap 10.0 mmol/L (3-11); Blood Urea Nitrogen 16.0 mg/dL (8-24); CO2, Blood 29.0 mmol/L (21-32); Calcium, Blood 8.2 mg/dL (8.5-10.1); Chloride, Blood 101.0 mmol/L (98-108); Creatinine, Blood 0.66 mg/dL (0.60-1.20); Glucose, Blood 112.0 mg/dL (70-99); Potassium, Blood 3.5 mmol/L (3.5-5.5); Sodium, Blood 136.0 mmol/L (136-145)
--- NOTE | 2024-12-12 05:17 | NUR ---
SHIFT SUMMARY: PT ABLE TO REST T/O THE NIGHT. NO ACUTE EVENTS. PT REMAINS ALERT AND ORIENTED. FOLLOWS DIRECTION AND MAKES NEEDS KNOWN. CONTINUES TO DENY SUICIDAL IDEATION. CIWA 1-2 T/O THE NIGHT. TOLERATING PO INTAKE. ABLE TO AMBULATE TO BATHROOM WITH ASSIST. CONTINUES IN SR-ST WITH HR 70-110. DENIES CP. SBP ELEVATED IN THE 180'S, DR. GARCIA AWARE AND ORDER FOR LISINOPRIL WAS GIVEN. PT ON 4-6L NC T/O THE NIGHT WITH SPO2 94-98%. DENIES SOB. PIVS INTACT AND PATENT. PT RESTARTED ON HOME MED FOR GOUT IN LEFT HAND. HAND SWOLLEN AND PAINFUL TO TOUCH. PUREWICK IN PLACE TO SUCTION WHILE IN BED. PT ABLE TO HAVE A BM THIS SHIFT. 1:1 SITTER AT DOOR. BED LOCKED, CALL LIGHT IN REACH.
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
--- NOTE | 2024-12-12 08:00 | NUR ---
ASSUMED CARE PT ALERT AND ORIENTED. PT ON CPAP ROOM AIR. VSS. 1:1 PERSONAL ATTENDENT. PT HAS TREMBLING IN BUE BUT PT STATES THAT IS HIS BASELINE. CALLED TO BRING IN BROKEN CPAP FROM HOME FOR EVALUATION.
[2024-12-12] MEDS ORDERED: Folic Acid 1 MG TAB PO SCH (09:00)
--- NOTE | 2024-12-12 09:30 | NUR ---
PRECOMMITMENT EVALUATION PT REMAINS CALM AND ORIENTED. PT IS TALKING WITH PRECOMMITMENT HISTORY CARD CLERK.NC STARTED AT 4 LITERS AND TITRATED DOWN TO 1 LITER. O2 SAT 93%.
--- NOTE | 2024-12-12 12:00 | NUR ---
SUICIDE HOLD D/C. DR. NAVA D/C SUICIDE HOLD. AT BEDSIDE AND UPDATED.DAUGHTER GENIA UPDATED.
[2024-12-12] MEDS ORDERED: INDO50 PO (14:34)
[2024-12-12] MEDS ORDERED: LISI20 PO (14:35)
--- NOTE | 2024-12-12 15:58 | NUR ---
DISCHARGE PT EVALUATED BY PRE-COMMITMENT REAL ESTATE COORDINATOR AND DR DILL. PHYSICIAN HOLD DROPPED AND PLAN TO DISCHARGE. SAFETY PLAN FILLED OUT WITH SERVICE REPRESENTATIVE. PT'S REPORTS FAMILY MEMBER REMOVED WEAPONS AND SUBSTANCES FROM HOME. PT AND PT'S SPOUSE AGREEABLE HOME IS A SAFE PLACE. MOST RECENT CIWA SCORE 0. PT ASSISTS WITH ADLS ABLE, LIMITED DUE TO DISCOMFORT FROM CHRONIC GOUT AND PREVIOUS RLE SURGERY. PT PROVIDED DISCHARGE INSTRUCTIONS, VERBALIZES UNDERSTANDING. PT ACCOUNTS FOR ALL BELONGINGS INCLUDING HOME CPAP AND CANE. PT LEFT DEPARTMENT AT 1540 AND PROVIDED RIDE HOME BY BROTHER.
[2024-12-12] MEDS ORDERED: Enoxaparin 40 MG/0.4 ML SYR SC SCH ×2 (21:00)
== END 2024-12-12 15:40 | disposition home or self-care (01) | DRG 897 ==
LOC: ER 20:01 → ICUE 20:02 → EOR 20:02 → ICUE 12-11 01:10
PROVIDERS: Student in an Organized Health Care Education/Training Program; ADMIT Internal Medicine
DX: F10.129 Alcohol abuse with intoxication, unspecified (principal); E87.1 Hypo-osmolality and hyponatremia; R45.851 Suicidal ideations; Z68.43 Body mass index [BMI] 50.0-59.9, adult; I10 Essential (primary) hypertension; E78.00 Pure hypercholesterolemia, unspecified; M10.9 Gout, unspecified; K21.9 Gastro-esophageal reflux disease without esophagitis; G47.33 Obstructive sleep apnea (adult) (pediatric); Y90.8 Blood alcohol level of 240 mg/100 ml or more; F32.A Depression, unspecified; I35.0 Nonrheumatic aortic (valve) stenosis; I25.10 Atherosclerotic heart disease of native coronary artery without angina pectoris; R45.1 Restlessness and agitation; R60.0 Localized edema; E66.9 Obesity, unspecified; I25.2 Old myocardial infarction; Z87.19 Personal history of other diseases of the digestive system; Z98.890 Other specified postprocedural states; Z95.5 Presence of coronary angioplasty implant and graft; Z79.82 Long term (current) use of aspirin; Z79.899 Other long term (current) drug therapy; Z79.2 Long term (current) use of antibiotics; Z99.89 Dependence on other enabling machines and devices
CPT/HCPCS: 36415; 80048; 80053; 80320; 81003; 83735; 83880; 84439; 84443; 85025; 93005; 93010; 93971; 94660; 94762; 99285-25; A9270; G0378; G0480; J0360; J1650; J2060; J3411; J3475